=== PATIENT | male | born 1945 | race Caucasian/White ===

== ENCOUNTER 2017-02-25 17:43 | Inpatient (IN) | payer MEDICAID, OTHER ==
[~2017-02-25] VITALS: Ht 172.7 cm; Wt 90.7 kg
[~2017-02-25 17:43] MED LIST: AMIO200T42 PO; ASPI-496 PO; CALC667C PO; CARV3.1212 PO; CARV6.252 PO; CEFD300C37 PO; DOCU-30 PO; ERGO500017 PO; FERR325T20 PO; FLUT1DIS3 INH; FURO-92 PO; FURO40TA6 PO; FURO80TA3 PO; GLIM4TAB2 PO; HYDR12.53 PO; INSU100I32 SQ; IPRA3AMP18 NEB; LEVO25TA2 PO; LEVO88TA2 PO; LISI5TAB7 PO; METF850T2 PO; METO5TAB5 PO; OXYGEN INH; POTA10TA90 PO; SIME80TA16 PO; SIMV40TA3 PO; SPIR25TA PO; TIOT18CA INH; TRAM-28 PO
[2017-02-25] MEDS ORDERED: ASPIRIN 81 MG TABLET CHEW PO ONE (18:00)
[2017-02-25] MEDS ORDERED: SODIUM CHLORIDE FLUSH 10ML SYR IVF ONE (18:00)
[2017-02-25] MEDS ORDERED: ASPIRIN 81 MG TABLET CHEW ONE (18:23)
[2017-02-25 18:27] LABS: ASPARTATE AMINO TRANSFERASE 19 U/L (15-37); BLOOD UREA NITROGEN 61 mg/dL (7-18)
[2017-02-25 18:31] LABS: IS PT STATUS REG ER OR PRE ER? YES
[2017-02-25] MEDS ORDERED: LEVO125T5 PO (18:38)
[2017-02-25] MEDS ORDERED: SPIR50TA2 PO (18:42)
[2017-02-25] MEDS ORDERED: SIMV20TA3 PO (18:43)
[2017-02-25 21:00] VITALS: BP 108/69
[2017-02-25 22:23] LABS: CYTOLOGY BODY FLUID RECD INTO PATHOLOGY; CYTOLOGY BODY FLUID SOURCE ASCITES FLUID
[2017-02-25] MEDS ORDERED: LABETALOL 5MG/ML, 20ML IVPush PRN (22:30)
[2017-02-25] MEDS ORDERED: POLYETHYLENE GLYCOL 17 GM PACKET PO PRN (22:30)
[2017-02-25] MEDS ORDERED: DOCUSATE 100 MG CAPSULE PO PRN (22:30)
[2017-02-25] MEDS ORDERED: ACETAMINOPHEN 325 MG TABLET PO PRN (22:30)
[2017-02-25] MEDS ORDERED: BISACODYL 10 MG SUPP PR PRN (22:30)
[2017-02-25] MEDS: SIMVASTATIN 20 MG TABLET PO SCH (23:19)
[2017-02-25] MEDS: TRAZODONE 50MG TABLET PO PRN (23:19)
[2017-02-25] MEDS: HEPARIN 5,000 UNITS/ML, 1ML SQ SCH (23:19)
[2017-02-25 23:47] VITALS: BP 100/63
[2017-02-26] VITALS (7 sets, daily range): BP systolic 96–112; BP diastolic 52–72
[2017-02-26] MEDS: INSULIN DETEMIR 100 UNITS/ML, PEN SQ-INSULIN SCH ×3 (00:04→21:24)
[2017-02-26] MEDS: INSULIN ASPART 100 UNITS/ML, PEN SQ-INSULIN SCH ×4 (00:05→21:23)
[2017-02-26 00:10] LABS: IS PT STATUS REG ER OR PRE ER? NO
[2017-02-26] MEDS: HEPARIN 5,000 UNITS/ML, 1ML SQ SCH ×3 (05:43→21:24)
[2017-02-26 06:03] LABS: ASPARTATE AMINO TRANSFERASE 13 U/L (15-37); BLOOD UREA NITROGEN 57 mg/dL (7-18)
[2017-02-26 06:04] LABS: IS PT STATUS REG ER OR PRE ER? NO
[2017-02-26] MEDS: SPIRONOLACTONE 50 MG TABLET PO SCH ×2 (09:00→10:23)
[2017-02-26] MEDS: FUROSEMIDE 40 MG TABLET PO SCH ×3 (09:00→21:19)
[2017-02-26] MEDS ORDERED: INSULIN ASPART 100 UNITS/ML, PEN SQ-INSULIN ONE (09:00)
[2017-02-26] MEDS: CARVEDILOL 6.25 MG TABLET PO SCH ×3 (09:00→21:19)
[2017-02-26] MEDS: ASPIRIN 81 MG TABLET EC PO SCH (09:03)
[2017-02-26] MEDS: LEVOTHYROXINE 125 MCG TABLET PO SCH (09:03)
[2017-02-26] MEDS: AMIODARONE 200 MG TABLET PO SCH (09:03)
[2017-02-26] MEDS: FERROUS SULFATE 325 MG TABLET PO SCH ×3 (09:03→17:16)
[2017-02-26] MEDS: SIMVASTATIN 20 MG TABLET PO SCH (21:19)
[2017-02-26] MEDS: TRAZODONE 50MG TABLET PO PRN (23:09)
[2017-02-27 03:30] VITALS: BP 108/69
[2017-02-27 06:10] LABS: BLOOD UREA NITROGEN 54 mg/dL (7-18)
[2017-02-27] MEDS: HEPARIN 5,000 UNITS/ML, 1ML SQ SCH ×2 (06:20→14:30)
[2017-02-27] MEDS: INSULIN ASPART 100 UNITS/ML, PEN SQ-INSULIN SCH ×2 (07:00→10:57)
[2017-02-27] MEDS: FERROUS SULFATE 325 MG TABLET PO SCH (08:00)
[2017-02-27 08:18] VITALS: BP 99/64
[2017-02-27] MEDS: AMIODARONE 200 MG TABLET PO SCH (09:27)
[2017-02-27] MEDS: LEVOTHYROXINE 125 MCG TABLET PO SCH (09:27)
[2017-02-27] MEDS: CARVEDILOL 6.25 MG TABLET PO SCH (09:27)
[2017-02-27] MEDS: ASPIRIN 81 MG TABLET EC PO SCH (09:27)
[2017-02-27] MEDS: FUROSEMIDE 40 MG TABLET PO SCH (10:51)
[2017-02-27] MEDS: SPIRONOLACTONE 50 MG TABLET PO SCH (10:51)
[2017-02-27] MEDS: INSULIN DETEMIR 100 UNITS/ML, PEN SQ-INSULIN SCH (10:51)
[2017-02-27 13:53] VITALS: BP 99/64
== END 2017-02-27 18:15 | disposition home or self-care (01) | DRG 303 ==
LOC: ED 19:02 → EDIP 19:17 → 5SO 20:17
PROVIDERS: ADMIT Internal Medicine; ATTEND Internal Medicine
PROC: 0W9G3ZZ Drainage of Peritoneal Cavity, Percutaneous Approach (ICD-10-PCS; principal; 2017-02-25)
DX: I25.10 Atherosclerotic heart disease of native coronary artery without angina pectoris (principal); I13.0 Hypertensive heart and chronic kidney disease with heart failure and stage 1 through stage 4 chronic kidney disease, or unspecified chronic kidney disease; N18.4 Chronic kidney disease, stage 4 (severe); R18.8 Other ascites; I50.42 Chronic combined systolic (congestive) and diastolic (congestive) heart failure; I47.2 Ventricular tachycardia; N17.9 Acute kidney failure, unspecified; E78.5 Hyperlipidemia, unspecified; E11.22 Type 2 diabetes mellitus with diabetic chronic kidney disease; J44.9 Chronic obstructive pulmonary disease, unspecified; I48.0 Paroxysmal atrial fibrillation; E11.65 Type 2 diabetes mellitus with hyperglycemia; I25.5 Ischemic cardiomyopathy; I45.81 Long QT syndrome; E03.9 Hypothyroidism, unspecified; Z95.810 Presence of automatic (implantable) cardiac defibrillator; Z83.3 Family history of diabetes mellitus; Z82.49 Family history of ischemic heart disease and other diseases of the circulatory system; Z87.891 Personal history of nicotine dependence; Z79.82 Long term (current) use of aspirin; Z79.899 Other long term (current) drug therapy
CPT/HCPCS: 36415; 49083; 71010; 76770; 80048; 80053; 81003; 82042; 82150; 82945; 82962; 83036; 83735; 83986; 84157; 84439; 84443; 84484; 85025; 85610; 87070; 87205; 88112; 88305; 89051; 93005; 99285; J1644; J1815

== ENCOUNTER → 2017-10-28 | Outpatient (CLI) | payer OTHER ==
[~2017-10-28] MED LIST changes: +DOCU-131 PO; -DOCU-30 PO; +FERR325T18 PO; -FERR325T20 PO; +LEVO125T5 PO; +LIDOCAINE 1%, 20ML ONE; +POTA10TA6 PO; -POTA10TA90 PO; +SIMV20TA3 PO; +SPIR50TA2 PO; -TRAM-28 PO; +TRAM-47 PO
== END | disposition home or self-care (01) ==
LOC: RAD 14:39
PROVIDERS: ATTEND Internal Medicine Gastroenterology
DX: R18.8 Other ascites (principal); I50.9 Heart failure, unspecified
CPT/HCPCS: 49083; J3490

== ENCOUNTER → 2017-12-20 | Outpatient (CLI) | payer OTHER ==
[~2017-12-20] MED LIST changes: -LIDOCAINE 1%, 20ML ONE
== END | disposition home or self-care (01) ==
LOC: RAD 07:52
PROVIDERS: ATTEND Genetic Counselor, MS
DX: R18.8 Other ascites (principal)
CPT/HCPCS: 49083

== ENCOUNTER → 2018-02-08 | Outpatient (CLI) | payer OTHER ==
[~2018-02-08] MED LIST changes: +LIDOCAINE-MPF 1%, 2ML ONE
== END | disposition home or self-care (01) ==
LOC: RAD 12:03
PROVIDERS: ATTEND Genetic Counselor, MS
DX: R18.8 Other ascites (principal)
CPT/HCPCS: 49083; J3490

== ENCOUNTER → 2018-02-21 | Outpatient (CLI) | payer OTHER ==
[~2018-02-21] MED LIST changes: -LIDOCAINE-MPF 1%, 2ML ONE
== END | disposition home or self-care (01) ==
LOC: RAD 11:54
PROVIDERS: ATTEND Genetic Counselor, MS
DX: R18.8 Other ascites (principal); R14.0 Abdominal distension (gaseous); R10.9 Unspecified abdominal pain
CPT/HCPCS: 49083

== ENCOUNTER → 2018-03-17 | Outpatient (CLI) | payer OTHER ==
[~2018-03-17] MED LIST changes: +LIDOCAINE-MPF 2% ,5ML ONE
== END | disposition home or self-care (01) ==
LOC: RAD 13:24
PROVIDERS: ATTEND Genetic Counselor, MS
DX: R18.8 Other ascites (principal); R14.0 Abdominal distension (gaseous)
CPT/HCPCS: 49083; J3490

== ENCOUNTER → 2018-04-07 | Outpatient (CLI) | payer OTHER | END | disposition home or self-care (01) | LOC: RAD 13:17 | PROVIDERS: ATTEND Genetic Counselor, MS | DX: R18.8 Other ascites (principal); R14.0 Abdominal distension (gaseous) | CPT/HCPCS: 49083; J3490 ==

== ENCOUNTER → 2018-12-22 | Outpatient (CLI) | payer OTHER ==
[~2018-12-22] MED LIST changes: +HYDR12.517 PO; -HYDR12.53 PO; +LIDOCAINE-MPF 1%, 5ML ONE; -LIDOCAINE-MPF 2% ,5ML ONE; +METF850T10 PO; -METF850T2 PO; -SPIR50TA2 PO; +SPIR50TA4 PO
== END | disposition home or self-care (01) ==
LOC: RAD 11:41
PROVIDERS: ATTEND Internal Medicine Gastroenterology
DX: K70.9 Alcoholic liver disease, unspecified (principal)
CPT/HCPCS: 49083

== ENCOUNTER → 2019-01-02 | Outpatient (CLI) | payer OTHER | END | disposition home or self-care (01) | LOC: RAD 14:11 | PROVIDERS: ATTEND Genetic Counselor, MS | DX: K70.9 Alcoholic liver disease, unspecified (principal) | CPT/HCPCS: 49083 ==

== ENCOUNTER → 2019-01-09 | Outpatient (CLI) | payer OTHER | END | disposition home or self-care (01) | LOC: RAD 13:36 | PROVIDERS: ATTEND Genetic Counselor, MS | DX: R18.8 Other ascites (principal) | CPT/HCPCS: 49083 ==

== ENCOUNTER → 2019-01-12 | Outpatient (CLI) | payer OTHER | END | disposition home or self-care (01) | LOC: RAD 12:16 | PROVIDERS: ATTEND Genetic Counselor, MS | DX: K74.60 Unspecified cirrhosis of liver (principal) | CPT/HCPCS: 49083 ==

== ENCOUNTER 2019-01-16 08:24 | Emergency (ER) | payer OTHER ==
[~2019-01-16] VITALS: Ht 175.3 cm; Wt 88.6 kg
[~2019-01-16 08:24] MED LIST changes: -LIDOCAINE-MPF 1%, 5ML ONE
[2019-01-16] MEDS ORDERED: SODIUM CHLORIDE FLUSH 10ML SYR IVF ONE (09:00)
--- NOTE | 2019-01-16 09:27 | NUR ---
Pt transported on gurney [facility] All safety measures in place.
--- NOTE | 2019-01-16 09:39 | NUR ---
Pt gave verbal consent at 0845 for ED staff to discuss his medical history and care with his daughter who is at bedside. Pt's daughter confirmed pt's home meds, but states, "I don't know his doses, and he won't either."
[2019-01-16 09:47] LABS: BASOPHILS # (AUTO) 0.02 x10^3/uL (0-0.1); BASOPHILS % (AUTO) 0 % (0-1); EOSINOPHILS # (AUTO) 0.15 x10^3/uL (0-0.4); EOSINOPHILS % (AUTO) 2 % (1-7); LYMPHOCYTES # (AUTO) 0.98 x10^3/uL (1-3.4); LYMPHOCYTES % (AUTO) 12 % (22-44); MD NO; MEAN CORPUSCULAR HEMOGLOBIN 29.1 pg (27.5-34.5); MEAN CORPUSCULAR HGB CONC 32.8 g/dL (33.2-36.2); MEAN CORPUSCULAR VOLUME 88.7 fL (81-97); MEAN PLATELET VOLUME 9.1 fL (7.4-10.4); MONOCYTES # (AUTO) 0.77 x10^3/uL (0.2-0.8); MONOCYTES % (AUTO) 9 % (2-9); NEUTROPHILS # (AUTO) 6.65 x10^3/uL (1.8-6.8); NEUTROPHILS % (AUTO) 78 % (42-75); PLATELET COUNT 187 x10^3/uL (130-400); RED CELL DISTRIBUTION WIDTH 14.1 % (9.4-14.8)
[2019-01-16 10:12] LABS: ALANINE AMINOTRANSFERASE 19 U/L (12-78); CALCIUM 8.6 mg/dL (8.5-10.1); CREATININE 2.05 mg/dL (0.7-1.3)
--- NOTE | 2019-01-16 10:12 | NUR ---
Pt back to room from x-ray. Pt requiring oxygen while at rest as SPO2% is at 76% on room air when pt is at rest. Pt is on 3L oxygen via nasal cannula to remain abve 90% while resting supine. Pt aware of need or urine sample. Urinal at bedside. Pt has both bedrails up for safety measures. Call light is within reach. Pt's daughter is at bedside. No other needs requested at this time.
--- NOTE | 2019-01-16 10:22 | NUR ---
Dejon with IR at extension [phone] called regarding pt's schedule paracenthesis today scheduled for 1000 today. Dejon wanted to know if ED doctor is "planning on doing that."
[2019-01-16 10:41] LABS: ALBUMIN 2.5 g/dL (3.4-5.0); ALKALINE PHOSPHATASE 238 U/L (45-117); ANION GAP 7 mmol/L (5-15); BILIRUBIN,TOTAL 0.9 mg/dL (0.2-1.0); CHLORIDE 101 mmol/L (98-107); TOTAL PROTEIN 6.2 g/dL (6.4-8.2)
--- NOTE | 2019-01-16 10:43 | NUR ---
ED MD informed of paracenthesis. ED MD states, "Luzmaria is going to do it here." IR called and notified.
--- NOTE | 2019-01-16 10:47 | NUR ---
Pt requesting water. Provided pt water per request and with ED MD verbal consent. Pt aware of need for urine. Pt's daughter Jennifer at bedside left to "take my daughter to school." Jennifer can be contacted at [phone] for shrimp picker when pt is to be discharged.
[2019-01-16] MEDS ORDERED: LIDOCAINE-MPF 1%, 5ML ONE (10:51)
--- NOTE | 2019-01-16 11:10 | NUR ---
IR at ED bedside for paracentesis. IR provided consent paperwork. IR to obtain consent from pt.
--- NOTE | 2019-01-16 11:17 | NUR ---
Pt provided urine sample. Urine sample sent to lab. [facility].
[2019-01-16 11:25] LABS: MICROSCOPIC NOT IND
[2019-01-16 11:28] LABS: CULTURE INDICATED? NO
--- NOTE | 2019-01-16 12:18 | NUR ---
Called pt's daughter Jennifer at [phone] for pt d/c transportation. Unable to leave voicemail due to voicemail box being "full". Pt aware.
--- NOTE | 2019-01-16 12:27 | NUR ---
Pt's daughter Jennifer called. Jennifer stated, "I will be there in 30 minutes." Pt aware.
--- NOTE | 2019-01-16 12:38 | NUR ---
Patient given discharge instructions and they have confirmed that they understand the instructions. Patient pushed in wheelchair to ED. Pt left with all personal belongings, d/c paperwork, prescription, and rest note. PIV in right forearm 20g removed with tip intact.
[2019-01-16 12:40] VITALS: BP 132/61
== END 2019-01-16 12:42 | disposition home or self-care (01) ==
LOC: ED 10:18
DX: S32.020A Wedge compression fracture of second lumbar vertebra, initial encounter for closed fracture (principal); S22.080A Wedge compression fracture of T11-T12 vertebra, initial encounter for closed fracture; I13.0 Hypertensive heart and chronic kidney disease with heart failure and stage 1 through stage 4 chronic kidney disease, or unspecified chronic kidney disease; E11.22 Type 2 diabetes mellitus with diabetic chronic kidney disease; N18.9 Chronic kidney disease, unspecified; I50.9 Heart failure, unspecified; I48.91 Unspecified atrial fibrillation; J44.9 Chronic obstructive pulmonary disease, unspecified; I25.2 Old myocardial infarction; K70.31 Alcoholic cirrhosis of liver with ascites; Z87.891 Personal history of nicotine dependence; Z95.0 Presence of cardiac pacemaker; W01.0XXA Fall on same level from slipping, tripping and stumbling without subsequent striking against object, initial encounter; Y93.89 Activity, other specified; Y92.89 Other specified places as the place of occurrence of the external cause; Y99.8 Other external cause status
CPT/HCPCS: 36415; 49083; 72110; 72220; 80053; 81003; 83735; 84100; 85025; 99285

== ENCOUNTER → 2019-01-26 | Outpatient (CLI) | payer OTHER ==
[~2019-01-26] MED LIST changes: +LIDOCAINE-MPF 1%, 5ML ONE
== END | disposition home or self-care (01) ==
LOC: RAD 14:17
PROVIDERS: ATTEND Genetic Counselor, MS
DX: R18.8 Other ascites (principal)
CPT/HCPCS: 49083

== ENCOUNTER → 2019-03-16 | Outpatient (CLI) | payer OTHER | END | disposition home or self-care (01) | LOC: RAD 13:15 | PROVIDERS: ATTEND Genetic Counselor, MS | DX: R18.8 Other ascites (principal) | CPT/HCPCS: 49083 ==

== ENCOUNTER → 2019-03-23 | Outpatient (CLI) | payer OTHER | END | disposition home or self-care (01) | LOC: RAD 14:38 | PROVIDERS: ATTEND Genetic Counselor, MS | DX: R18.8 Other ascites (principal) | CPT/HCPCS: 49083 ==

== ENCOUNTER 2019-03-30 11:37 | Outpatient (CLI) | payer OTHER ==
[~2019-03-30 11:37] MED LIST changes: -LIDOCAINE-MPF 1%, 5ML ONE
[2019-03-30] MEDS ORDERED: LIDOCAINE-MPF 1%, 5ML ONE ×2 (11:38)
== END 2019-03-30 23:59 | disposition home or self-care (01) ==
LOC: RAD 11:37
PROVIDERS: ATTEND Genetic Counselor, MS
DX: R18.8 Other ascites (principal)
CPT/HCPCS: 49083

== ENCOUNTER 2019-04-06 11:31 | Outpatient (CLI) | payer OTHER | END 2019-04-06 23:59 | disposition home or self-care (01) | LOC: RAD 11:31 | PROVIDERS: ATTEND Genetic Counselor, MS | DX: R18.8 Other ascites (principal) | CPT/HCPCS: 49083; J3490 ==

== ENCOUNTER 2019-04-12 09:06 | Outpatient (CLI) | payer OTHER | END 2019-04-12 23:59 | disposition home or self-care (01) | LOC: RAD 09:06 | PROVIDERS: ATTEND Genetic Counselor, MS | DX: R18.8 Other ascites (principal) | CPT/HCPCS: 49083 ==

== ENCOUNTER 2019-04-19 11:40 | Outpatient (CLI) | payer OTHER | END 2019-04-19 23:59 | disposition home or self-care (01) | LOC: RAD 11:40 | PROVIDERS: ATTEND Genetic Counselor, MS | DX: R18.8 Other ascites (principal) | CPT/HCPCS: 49083 ==

== ENCOUNTER 2019-04-26 11:10 | Outpatient (CLI) | payer OTHER | END 2019-04-26 23:59 | disposition home or self-care (01) | LOC: RAD 11:10 | PROVIDERS: ATTEND Genetic Counselor, MS | DX: R18.8 Other ascites (principal); K74.60 Unspecified cirrhosis of liver | CPT/HCPCS: 49083; J3490 ==

== ENCOUNTER 2019-07-12 13:38 | Outpatient (CLI) | payer MEDICARE, MEDICAID ==
[2019-07-12] MEDS ORDERED: LIDOCAINE 1%, 10ML ONE (13:49)
== END 2019-07-12 23:59 | disposition home or self-care (01) ==
LOC: RAD 13:38
PROVIDERS: ATTEND Genetic Counselor, MS
DX: R18.8 Other ascites (principal)
CPT/HCPCS: 49083

== ENCOUNTER 2019-08-02 13:32 | Outpatient (CLI) | payer MEDICARE, MEDICAID ==
[~2019-08-02 13:32] MED LIST changes: -GLIM4TAB2 PO; +GLIM4TAB4 PO; +LIDOCAINE 1%, 10ML ONE
== END 2019-08-02 23:59 | disposition home or self-care (01) ==
LOC: RAD 13:32
PROVIDERS: ATTEND Genetic Counselor, MS
DX: R18.8 Other ascites (principal)
CPT/HCPCS: 49083

== ENCOUNTER → 2019-08-09 | Outpatient (CLI) | payer MEDICARE, MEDICAID | END | disposition home or self-care (01) | LOC: RAD 13:42 | PROVIDERS: ATTEND Genetic Counselor, MS | DX: R18.8 Other ascites (principal) | CPT/HCPCS: 49083 ==

== ENCOUNTER 2019-08-14 12:53 | Outpatient (CLI) | payer MEDICARE, MEDICAID ==
[~2019-08-14 12:53] MED LIST changes: -LIDOCAINE 1%, 10ML ONE
[2019-08-14] MEDS ORDERED: LIDOCAINE 1%, 10ML ONE (13:17)
== END 2019-08-14 23:59 | disposition home or self-care (01) ==
LOC: RAD 12:53
PROVIDERS: ATTEND Genetic Counselor, MS
DX: R18.8 Other ascites (principal); R10.9 Unspecified abdominal pain; Z87.891 Personal history of nicotine dependence
CPT/HCPCS: 49083

== ENCOUNTER → 2019-08-23 | Outpatient (CLI) | payer MEDICARE, MEDICAID ==
[~2019-08-23] MED LIST changes: +LIDOCAINE 1%, 10ML ONE
== END | disposition home or self-care (01) ==
LOC: RAD 13:42
PROVIDERS: ATTEND Genetic Counselor, MS
DX: R18.8 Other ascites (principal)
CPT/HCPCS: 49083

== ENCOUNTER 2019-09-06 14:15 | Outpatient (CLI) | payer MEDICARE, MEDICAID ==
[~2019-09-06 14:15] MED LIST changes: -LIDOCAINE 1%, 10ML ONE
[2019-09-06] MEDS ORDERED: LIDOCAINE 1%, 10ML ONE (14:19)
== END 2019-09-06 23:59 | disposition home or self-care (01) ==
LOC: RAD 14:15
PROVIDERS: ATTEND Genetic Counselor, MS
DX: R18.8 Other ascites (principal)
CPT/HCPCS: 49083

== ENCOUNTER 2019-09-11 10:36 | Outpatient (CLI) | payer MEDICARE, MEDICAID ==
[2019-09-11] MEDS ORDERED: LIDOCAINE-MPF 1%, 5ML ONE (11:03)
== END 2019-09-11 23:59 | disposition home or self-care (01) ==
LOC: RAD 10:36
PROVIDERS: ATTEND Genetic Counselor, MS
DX: R18.8 Other ascites (principal)
CPT/HCPCS: 49083; 88112; 88305; 88341; 88342

== ENCOUNTER → 2019-09-20 | Outpatient (CLI) | payer MEDICARE, MEDICAID ==
[~2019-09-20] MED LIST changes: +LIDOCAINE 1%, 10ML ONE
== END | disposition home or self-care (01) ==
LOC: RAD 13:40
PROVIDERS: ATTEND Genetic Counselor, MS
DX: R18.8 Other ascites (principal)
CPT/HCPCS: 49083

== ENCOUNTER 2019-09-27 12:54 | Outpatient (CLI) | payer MEDICARE, MEDICAID ==
[~2019-09-27 12:54] MED LIST changes: -LIDOCAINE 1%, 10ML ONE
[2019-09-27] MEDS ORDERED: LIDOCAINE 1%, 10ML ONE (13:10)
[2019-09-27] MEDS ORDERED: ALBUMIN HUMAN 25%, 25GM/100ML IV ONE (14:00)
== END 2019-09-27 23:59 | disposition home or self-care (01) ==
LOC: RAD 12:54
PROVIDERS: ATTEND Genetic Counselor, MS
DX: R18.8 Other ascites (principal)
CPT/HCPCS: 49083

== ENCOUNTER 2019-10-04 13:28 | Outpatient (CLI) | payer MEDICARE, MEDICAID ==
[2019-10-04] MEDS ORDERED: ALBUMIN HUMAN 25% 200 ML IV ONE (14:30)
[2019-10-04] MEDS ORDERED: LIDOCAINE 1%, 10ML ONE (14:35)
== END 2019-10-04 23:59 | disposition home or self-care (01) ==
LOC: RAD 13:28
PROVIDERS: ATTEND Genetic Counselor, MS
DX: R18.8 Other ascites (principal)
CPT/HCPCS: 49083

== ENCOUNTER 2019-10-11 13:09 | Outpatient (CLI) | payer MEDICARE, MEDICAID ==
[2019-10-11] MEDS ORDERED: LIDOCAINE 1%, 10ML ONE (14:16)
[2019-10-11] MEDS ORDERED: ALBUMIN HUMAN 25%, 25GM/100ML ONE (15:44)
== END 2019-10-11 23:59 | disposition home or self-care (01) ==
LOC: RAD 13:09
PROVIDERS: ATTEND Genetic Counselor, MS
DX: R18.8 Other ascites (principal)
CPT/HCPCS: 49083; P9047

== ENCOUNTER → 2019-10-18 | Outpatient (CLI) | payer MEDICARE, MEDICAID ==
[~2019-10-18] MED LIST changes: +ALBUMIN HUMAN 25%, 25GM/100ML ONE; +LIDOCAINE 1%, 10ML ONE
== END | disposition home or self-care (01) ==
LOC: RAD 13:54
PROVIDERS: ATTEND Genetic Counselor, MS
DX: R18.8 Other ascites (principal)
CPT/HCPCS: 49083; P9047

== ENCOUNTER → 2019-10-23 | Outpatient (CLI) | payer MEDICARE, MEDICAID ==
[~2019-10-23] MED LIST changes: -GLIM4TAB4 PO; +GLIM4TAB8 PO; +SIMV20TA19 PO; -SIMV20TA3 PO; +SIMV40TA20 PO; -SIMV40TA3 PO
== END | disposition home or self-care (01) ==
LOC: RAD 13:25
PROVIDERS: ATTEND Genetic Counselor, MS
DX: R18.8 Other ascites (principal)
CPT/HCPCS: 49083; P9047

== ENCOUNTER → 2019-10-25 | Outpatient (CLI) | payer MEDICARE, MEDICAID | END | disposition home or self-care (01) | LOC: RAD 13:39 | PROVIDERS: ATTEND Genetic Counselor, MS | DX: R18.8 Other ascites (principal) | CPT/HCPCS: 49083; P9047 ==

== ENCOUNTER → 2019-10-30 | Outpatient (CLI) | payer MEDICARE, MEDICAID | END | disposition home or self-care (01) | LOC: RAD 08:51 | PROVIDERS: ATTEND Genetic Counselor, MS | DX: R18.8 Other ascites (principal) | CPT/HCPCS: 49083; P9047 ==

== ENCOUNTER → 2019-11-02 | Outpatient (CLI) | payer MEDICARE, MEDICAID ==
[~2019-11-02] MED LIST changes: +ALBUMIN HUMAN 25% 12.5 GM/50 ML ONE; -ALBUMIN HUMAN 25%, 25GM/100ML ONE
== END | disposition home or self-care (01) ==
LOC: RAD 09:16
PROVIDERS: ATTEND Genetic Counselor, MS
DX: R18.8 Other ascites (principal)
CPT/HCPCS: 49083; P9047

== ENCOUNTER 2019-11-06 10:09 | Outpatient (CLI) | payer MEDICARE, MEDICAID ==
[~2019-11-06 10:09] MED LIST changes: -ALBUMIN HUMAN 25% 12.5 GM/50 ML ONE
[2019-11-06] MEDS ORDERED: ALBUMIN HUMAN 25%, 25GM/100ML ONE (11:16)
== END 2019-11-06 23:59 | disposition home or self-care (01) ==
LOC: RAD 10:09
PROVIDERS: ATTEND Genetic Counselor, MS
DX: R18.8 Other ascites (principal)
CPT/HCPCS: 49083; P9047

== ENCOUNTER → 2019-11-09 | Outpatient (CLI) | payer MEDICARE, MEDICAID ==
[~2019-11-09] MED LIST changes: +ALBUMIN HUMAN 25%, 25GM/100ML ONE
== END | disposition home or self-care (01) ==
LOC: RAD 09:37
PROVIDERS: ATTEND Genetic Counselor, MS
DX: R18.8 Other ascites (principal)
CPT/HCPCS: 49083; P9047

== ENCOUNTER → 2019-11-13 | Outpatient (CLI) | payer MEDICARE, MEDICAID | END | disposition home or self-care (01) | LOC: RAD 09:44 | PROVIDERS: ATTEND Genetic Counselor, MS | DX: R18.8 Other ascites (principal) | CPT/HCPCS: 49083; P9047 ==

== ENCOUNTER 2019-11-16 08:39 | Outpatient (CLI) | payer MEDICARE, MEDICAID ==
[~2019-11-16 08:39] MED LIST changes: -ALBUMIN HUMAN 25%, 25GM/100ML ONE; -LIDOCAINE 1%, 10ML ONE
[2019-11-16] MEDS ORDERED: LIDOCAINE 1%, 10ML ONE (09:23)
[2019-11-16] MEDS ORDERED: ALBUMIN HUMAN 5%, 25G/500ML ONE ×2 (10:00→17:47)
== END 2019-11-16 23:59 | disposition home or self-care (01) ==
LOC: RAD 08:39
PROVIDERS: ATTEND Genetic Counselor, MS
DX: R18.8 Other ascites (principal)
CPT/HCPCS: 49083; P9045

== ENCOUNTER → 2019-11-20 | Outpatient (CLI) | payer MEDICARE, MEDICAID ==
[~2019-11-20] MED LIST changes: +ALBUMIN HUMAN 25%, 25GM/100ML ONE; +LIDOCAINE 1%, 10ML ONE
== END | disposition home or self-care (01) ==
LOC: RAD 09:53
PROVIDERS: ATTEND Genetic Counselor, MS
DX: R18.8 Other ascites (principal)
CPT/HCPCS: 49083; P9047

== ENCOUNTER 2019-11-23 10:13 | Outpatient (CLI) | payer MEDICARE, MEDICAID ==
[~2019-11-23 10:13] MED LIST changes: -ALBUMIN HUMAN 25%, 25GM/100ML ONE; -LIDOCAINE 1%, 10ML ONE
[2019-11-23] MEDS ORDERED: LIDOCAINE 1%, 10ML ONE (10:31)
[2019-11-23] MEDS ORDERED: ALBUMIN HUMAN 25%, 25GM/100ML ONE (11:00)
== END 2019-11-23 23:59 | disposition home or self-care (01) ==
LOC: RAD 10:13
PROVIDERS: ATTEND Genetic Counselor, MS
DX: R18.8 Other ascites (principal)
CPT/HCPCS: 49083; P9047

== ENCOUNTER 2019-11-27 10:07 | Outpatient (CLI) | payer MEDICARE, MEDICAID ==
[~2019-11-27 10:07] MED LIST changes: +LIDOCAINE 1%, 10ML ONE
[2019-11-27] MEDS ORDERED: ALBUMIN HUMAN 25%, 25GM/100ML ONE (14:02)
== END 2019-11-27 23:59 | disposition home or self-care (01) ==
LOC: RAD 10:07
PROVIDERS: ATTEND Genetic Counselor, MS
DX: R18.8 Other ascites (principal); F10.10 Alcohol abuse, uncomplicated; Z79.82 Long term (current) use of aspirin; Z79.899 Other long term (current) drug therapy; Z79.4 Long term (current) use of insulin; Z87.891 Personal history of nicotine dependence; Z82.49 Family history of ischemic heart disease and other diseases of the circulatory system; Z83.3 Family history of diabetes mellitus
CPT/HCPCS: 49083; P9047

== ENCOUNTER 2019-11-30 10:09 | Outpatient (CLI) | payer MEDICARE, MEDICAID ==
[~2019-11-30 10:09] MED LIST changes: -LIDOCAINE 1%, 10ML ONE
[2019-11-30] MEDS ORDERED: LIDOCAINE 1%, 10ML ONE (10:39)
[2019-11-30] MEDS ORDERED: ALBUMIN HUMAN 25%, 25GM/100ML ONE (11:00)
== END 2019-11-30 23:59 | disposition home or self-care (01) ==
LOC: RAD 10:09
PROVIDERS: ATTEND Genetic Counselor, MS
DX: R18.8 Other ascites (principal)
CPT/HCPCS: 49083; P9047

== ENCOUNTER 2019-12-04 09:39 | Outpatient (CLI) | payer MEDICARE, MEDICAID ==
[2019-12-04] MEDS ORDERED: LIDOCAINE 1%, 10ML ONE (09:55)
[2019-12-04] MEDS ORDERED: ALBUMIN HUMAN 25%, 25GM/100ML ONE (10:00)
== END 2019-12-04 23:59 | disposition home or self-care (01) ==
LOC: RAD 09:39
PROVIDERS: ATTEND Genetic Counselor, MS
DX: R18.8 Other ascites (principal); E11.9 Type 2 diabetes mellitus without complications; Z79.82 Long term (current) use of aspirin; Z79.899 Other long term (current) drug therapy; Z79.4 Long term (current) use of insulin; Z72.89 Other problems related to lifestyle; Z87.891 Personal history of nicotine dependence; Z82.49 Family history of ischemic heart disease and other diseases of the circulatory system; Z83.3 Family history of diabetes mellitus
CPT/HCPCS: 49083; P9047

== ENCOUNTER → 2019-12-07 | Outpatient (CLI) | payer MEDICARE, MEDICAID ==
[~2019-12-07] MED LIST changes: +ALBUMIN HUMAN 25%, 25GM/100ML ONE; +LIDOCAINE 1%, 10ML ONE
== END | disposition home or self-care (01) ==
LOC: RAD 09:45
PROVIDERS: ATTEND Genetic Counselor, MS
DX: R18.8 Other ascites (principal)
CPT/HCPCS: 49083; P9047

== ENCOUNTER → 2019-12-11 | Outpatient (CLI) | payer MEDICARE, MEDICAID | END | disposition home or self-care (01) | LOC: RAD 09:58 | PROVIDERS: ATTEND Genetic Counselor, MS | DX: R18.8 Other ascites (principal) | CPT/HCPCS: 49083; P9047 ==

== ENCOUNTER → 2019-12-14 | Outpatient (CLI) | payer MEDICARE, MEDICAID | END | disposition home or self-care (01) | LOC: RAD 09:43 | PROVIDERS: ATTEND Genetic Counselor, MS | DX: R18.8 Other ascites (principal) | CPT/HCPCS: 49083; P9047 ==

== ENCOUNTER → 2019-12-18 | Outpatient (CLI) | payer MEDICARE, MEDICAID | END | disposition home or self-care (01) | LOC: RAD 09:37 | PROVIDERS: ATTEND Genetic Counselor, MS | DX: R18.8 Other ascites (principal) | CPT/HCPCS: 49083; P9047 ==

== ENCOUNTER → 2019-12-21 | Outpatient (CLI) | payer MEDICARE, MEDICAID ==
[~2019-12-21] MED LIST changes: +ALBUMIN HUMAN 25% 12.5 GM/50 ML ONE; -ALBUMIN HUMAN 25%, 25GM/100ML ONE
== END | disposition home or self-care (01) ==
LOC: RAD 09:51
PROVIDERS: ATTEND Genetic Counselor, MS
DX: R18.8 Other ascites (principal)
CPT/HCPCS: 49083; P9047

== ENCOUNTER 2019-12-25 09:40 | Outpatient (CLI) | payer MEDICARE, MEDICAID ==
[~2019-12-25 09:40] MED LIST changes: -ALBUMIN HUMAN 25% 12.5 GM/50 ML ONE; -LIDOCAINE 1%, 10ML ONE
[2019-12-25] MEDS ORDERED: LIDOCAINE 1%, 10ML ONE (09:50)
[2019-12-25] MEDS ORDERED: ALBUMIN HUMAN 5%, 25G/500ML ONE (11:47)
== END 2019-12-25 23:59 | disposition home or self-care (01) ==
LOC: RAD 09:40
PROVIDERS: ATTEND Genetic Counselor, MS
DX: R18.8 Other ascites (principal)
CPT/HCPCS: 49083; P9045

== ENCOUNTER 2019-12-28 09:47 | Outpatient (CLI) | payer MEDICARE, MEDICAID ==
[~2019-12-28 09:47] MED LIST changes: +LIDOCAINE 1%, 10ML ONE
[2019-12-28] MEDS ORDERED: ALBUMIN HUMAN 25%, 25GM/100ML ONE (10:00)
== END 2019-12-28 23:59 | disposition home or self-care (01) ==
LOC: RAD 09:47
PROVIDERS: ATTEND Genetic Counselor, MS
DX: R18.8 Other ascites (principal)
CPT/HCPCS: 49083; P9047

== ENCOUNTER 2020-01-01 09:32 | Outpatient (CLI) | payer MEDICARE, MEDICAID ==
[~2020-01-01 09:32] MED LIST changes: -LIDOCAINE 1%, 10ML ONE
[2020-01-01] MEDS ORDERED: LIDOCAINE 1%, 10ML ONE (09:43)
[2020-01-01] MEDS ORDERED: ALBUMIN HUMAN 25%, 25GM/100ML ONE (11:26)
== END 2020-01-01 23:59 | disposition home or self-care (01) ==
LOC: RAD 09:32
PROVIDERS: ATTEND Genetic Counselor, MS
DX: R18.8 Other ascites (principal); I50.22 Chronic systolic (congestive) heart failure; R06.02 Shortness of breath; R05 Cough; Z95.810 Presence of automatic (implantable) cardiac defibrillator
CPT/HCPCS: 49083; 71046; P9047

== ENCOUNTER 2020-01-02 20:33 | Inpatient (IN) | payer MEDICAID, MEDICARE ==
[~2020-01-02] VITALS: Ht 172.7 cm; Wt 84.6 kg
[2020-01-02] MEDS ORDERED: SODIUM CHLORIDE FLUSH 10ML SYR IVF ONE (21:00)
[2020-01-02] MEDS ORDERED: SODIUM CHLORIDE 0.9% 1,000ML IVBOLUS ONE (21:00)
--- NOTE | 2020-01-02 21:04 | NUR ---
PT TO ED, SENT TO ED BY PCP REPROTS THAT LABS ARE INDICATIVE OF ACUTE KIDNEY FAILURE. PT HAS CKD.IV IN [place], LABS DRAWN, IVF STARTED, CXR PERFORMED, EKG PERFORMED. PT RESTING ON GURNEY, HAS LOOSE COUGH REPORTS THIS IS CHRONIC. PT ON 4.5L NC BASELINE AT HOME. PT DENIES ANY C/O AT THIS TIME. CALL LIGHT WITHIN REACH, ALL MONITORING IN PLACE, FAMIYL AT FOR SUPPORT, ALL SAFETY MEASURES IN PLACE.
[2020-01-02 21:12] LABS: BASOPHILS # (AUTO) 0.02 x10^3/uL (0-0.1); BASOPHILS % (AUTO) 0 % (0-1); EOSINOPHILS # (AUTO) 0.16 x10^3/uL (0-0.4); EOSINOPHILS % (AUTO) 2 % (1-7); LYMPHOCYTES # (AUTO) 0.83 x10^3/uL (1-3.4); LYMPHOCYTES % (AUTO) 8 % (22-44); MD NO; MEAN CORPUSCULAR HEMOGLOBIN 29.6 pg (27.5-34.5); MEAN CORPUSCULAR HGB CONC 33.1 g/dL (33.2-36.2); MEAN CORPUSCULAR VOLUME 89.2 fL (81-97); MEAN PLATELET VOLUME 8.3 fL (7.4-10.4); MONOCYTES # (AUTO) 1.05 x10^3/uL (0.2-0.8); MONOCYTES % (AUTO) 10 % (2-9); NEUTROPHILS # (AUTO) 8.01 x10^3/uL (1.8-6.8); NEUTROPHILS % (AUTO) 80 % (42-75); PLATELET COUNT 242 x10^3/uL (130-400); RED BLOOD COUNT 4.03 x10^6/uL (4.38-5.82); RED CELL DISTRIBUTION WIDTH 14.6 % (9.4-14.8)
[2020-01-02 21:19] LABS: INTERNATIONAL NORMALIZED RATIO 1.11 (0.93-1.1); PROTHROMBIN TIME 11.8 Seconds (9.6-11.5)
[2020-01-02 21:22] LABS: ALANINE AMINOTRANSFERASE 18 U/L (12-78); ALBUMIN 2.8 g/dL (3.4-5.0); ANION GAP 8 mmol/L (5-15); CALCIUM 8.4 mg/dL (8.5-10.1); CHLORIDE 100 mmol/L (98-107); CREATININE 3.73 mg/dL (0.7-1.3)
[2020-01-02 21:26] LABS: ALKALINE PHOSPHATASE 210 U/L (45-117); BILIRUBIN,TOTAL 0.6 mg/dL (0.2-1.0); TOTAL PROTEIN 6.3 g/dL (6.4-8.2); TROPONIN I 0.172 ng/mL (0.000-0.045)
[2020-01-02] MEDS ORDERED: DOCUSATE 100 MG CAPSULE PO PRN (22:30)
[2020-01-02] MEDS ORDERED: POLYETHYLENE GLYCOL 17 GM PACKET PO PRN (22:30)
[2020-01-02] MEDS ORDERED: BISACODYL 10 MG SUPP PR PRN (22:30)
[2020-01-02 23:03] LABS: C-REACTIVE PROTEIN, QUANT 8.7 mg/dL (0.02-0.49)
[2020-01-02 23:05] VITALS: BP 98/59
[2020-01-02] MEDS: HEPARIN 5,000 UNITS/ML, 1ML SQ SCH (23:26)
[2020-01-02] MEDS: CEFTRIAXONE PMX 1GM/50ML 50 ML IV SCH (23:26)
[2020-01-02] MEDS: TEMAZEPAM 15 MG CAPSULE PO PRN (23:26)
[2020-01-03] MEDS: AZITHROMYCIN 500 MG in SODIUM CHLORIDE 0.9% 250 ML IV SCH ×2 (01:03→23:28)
[2020-01-03 01:39] VITALS: BP 103/65
[2020-01-03 04:57] LABS: BASOPHILS # (AUTO) 0.01 x10^3/uL (0-0.1); BASOPHILS % (AUTO) 0 % (0-1); EOSINOPHILS # (AUTO) 0.16 x10^3/uL (0-0.4); EOSINOPHILS % (AUTO) 2 % (1-7); LYMPHOCYTES # (AUTO) 1.01 x10^3/uL (1-3.4); LYMPHOCYTES % (AUTO) 9 % (22-44); MD NO; MEAN CORPUSCULAR HEMOGLOBIN 29.4 pg (27.5-34.5); MEAN CORPUSCULAR HGB CONC 32.7 g/dL (33.2-36.2); MEAN CORPUSCULAR VOLUME 89.9 fL (81-97); MEAN PLATELET VOLUME 8.4 fL (7.4-10.4); MONOCYTES # (AUTO) 1.31 x10^3/uL (0.2-0.8); MONOCYTES % (AUTO) 12 % (2-9); NEUTROPHILS # (AUTO) 8.31 x10^3/uL (1.8-6.8); NEUTROPHILS % (AUTO) 77 % (42-75); PLATELET COUNT 243 x10^3/uL (130-400); RED BLOOD COUNT 3.79 x10^6/uL (4.38-5.82); RED CELL DISTRIBUTION WIDTH 15.3 % (9.4-14.8)
[2020-01-03 05:05] LABS: ALBUMIN 2.5 g/dL (3.4-5.0); ANION GAP 10 mmol/L (5-15); CALCIUM 8.1 mg/dL (8.5-10.1); CHLORIDE 102 mmol/L (98-107)
[2020-01-03 05:09] LABS: ALANINE AMINOTRANSFERASE 16 U/L (12-78); ALKALINE PHOSPHATASE 184 U/L (45-117); BILIRUBIN,TOTAL 0.6 mg/dL (0.2-1.0); CHOL/HDL RATIO 3.1; CHOLESTEROL, TOTAL 69 mg/dL (140-239); CREATININE 3.88 mg/dL (0.7-1.3); HDL CHOL % 32 % (26-37); HDL CHOLESTEROL (DIRECT) 22 mg/dL (40-60); LDL CHOLESTEROL,CALCULATED 28 mg/dL (54-169); LDL/HDL RATIO 1.3 (0.5-3.0); TOTAL PROTEIN 5.6 g/dL (6.4-8.2); TRIGLYCERIDES 96 mg/dL (50-200); TROPONIN I 0.148 ng/mL (0.000-0.045); VLDL CHOLESTEROL 19 mg/dL (0-25)
[2020-01-03 07:26] VITALS: BP 87/53
[2020-01-03] MEDS: HEPARIN 5,000 UNITS/ML, 1ML SQ SCH ×3 (07:29→22:44)
[2020-01-03] MEDS: CARVEDILOL 6.25 MG TABLET PO SCH ×2 (07:46→21:51)
[2020-01-03] MEDS: AMIODARONE 200 MG TABLET PO SCH (08:15)
[2020-01-03] MEDS: LEVOTHYROXINE 125 MCG TABLET PO SCH (08:16)
[2020-01-03 08:55] LABS: MICROSCOPIC INDICATED
[2020-01-03 09:00] LABS: CULTURE INDICATED? NO
[2020-01-03] MEDS ORDERED: ASPIRIN 81 MG TABLET EC PO SCH (09:00)
[2020-01-03] MEDS: CALCIUM ACETATE 667 MG CAPSULE PO SCH ×2 (12:54→16:42)
[2020-01-03] MEDS ORDERED: MIDAZOLAM 1 MG/ML, 5ML ONE (13:04)
[2020-01-03] MEDS ORDERED: FENTANYL PF 100 MCG/2ML ONE (13:04)
[2020-01-03] MEDS ORDERED: NALOXONE 1 MG/ML, 2ML ONE (13:04)
[2020-01-03] MEDS ORDERED: LIDOCAINE 1%, 20ML ONE (13:04)
[2020-01-03] MEDS ORDERED: FLUMAZENIL 0.1 MG/1 ML, 5ML ONE (13:04)
[2020-01-03 14:44] VITALS: BP 99/65
[2020-01-03] MEDS ORDERED: INSULIN GLARGINE 100 UNITS/ML, PEN SQ-INSULIN SCH (21:00)
[2020-01-03 21:36] VITALS: BP 99/67
[2020-01-03] MEDS: FUROSEMIDE 40 MG TABLET PO SCH (21:51)
[2020-01-03] MEDS: CEFTRIAXONE PMX 1GM/50ML 50 ML IV SCH (22:41)
[2020-01-03] MEDS: TEMAZEPAM 15 MG CAPSULE PO PRN (22:44)
[2020-01-04] VITALS (9 sets, daily range): BP systolic 82–103; BP diastolic 41–57
[2020-01-04 01:35] LABS: BASOPHILS % (AUTO) 0 % (0-1); EOSINOPHILS # (AUTO) 0.09 x10^3/uL (0-0.4); EOSINOPHILS % (AUTO) 1 % (1-7); LYMPHOCYTES # (AUTO) 0.67 x10^3/uL (1-3.4); LYMPHOCYTES % (AUTO) 5 % (22-44); MD NO; MEAN CORPUSCULAR HEMOGLOBIN 28.9 pg (27.5-34.5); MEAN CORPUSCULAR VOLUME 90.5 fL (81-97); MEAN PLATELET VOLUME 7.9 fL (7.4-10.4); MONOCYTES # (AUTO) 0.98 x10^3/uL (0.2-0.8); MONOCYTES % (AUTO) 8 % (2-9); NEUTROPHILS # (AUTO) 11.11 x10^3/uL (1.8-6.8); NEUTROPHILS % (AUTO) 86 % (42-75); PLATELET COUNT 234 x10^3/uL (130-400); RED BLOOD COUNT 3.66 x10^6/uL (4.38-5.82); RED CELL DISTRIBUTION WIDTH 15.1 % (9.4-14.8)
[2020-01-04 01:47] LABS: % IRON SATURATION 30 % (20-55); ANION GAP 9 mmol/L (5-15); CHLORIDE 102 mmol/L (98-107); CREATININE 3.33 mg/dL (0.7-1.3); IRON LEVEL 42 mcg/dL (65-175); TOTAL IRON BINDING CAPACITY 140 mcg/dL (250-450)
[2020-01-04 01:53] LABS: FREE T4 (FREE THYROXINE) 0.73 ng/dL (0.76-1.46)
[2020-01-04] MEDS: CALCIUM ACETATE 667 MG CAPSULE PO SCH ×4 (07:33→17:26)
[2020-01-04] MEDS: FUROSEMIDE 40 MG TABLET PO SCH ×2 (07:41→09:06)
[2020-01-04] MEDS: LEVOTHYROXINE 125 MCG TABLET PO SCH (07:41)
[2020-01-04] MEDS: AMIODARONE 200 MG TABLET PO SCH ×2 (07:41→09:31)
[2020-01-04] MEDS: CARVEDILOL 6.25 MG TABLET PO SCH ×2 (07:41→09:06)
[2020-01-04 08:31] LABS: C-REACTIVE PROTEIN, QUANT 8.5 mg/dL (0.02-0.49)
[2020-01-04] MEDS ORDERED: SPIRONOLACTONE 50 MG TABLET PO SCH (09:00)
[2020-01-04] MEDS ORDERED: SODIUM CHLORIDE 0.9%, 500ML IVBOLUS ONE (09:15)
[2020-01-04] MEDS: HEPARIN 5,000 UNITS/ML, 1ML SQ SCH ×2 (09:30→17:26)
[2020-01-04] MEDS ORDERED: ALBUMIN HUMAN 25% 50 ML IV PRN (11:00)
[2020-01-04] MEDS: ALBUMIN HUMAN 25% 100 ML IV PRN (14:43)
[2020-01-04] MEDS: INSULIN LISPRO 100 UNITS/ML, PEN SQ-INSULIN SCH ×2 (17:26→21:02)
[2020-01-04] MEDS: CARVEDILOL 3.125 MG TABLET PO SCH (21:00)
[2020-01-04] MEDS: CEFTRIAXONE PMX 1GM/50ML 50 ML IV SCH (22:52)
[2020-01-04] MEDS: TEMAZEPAM 15 MG CAPSULE PO PRN (23:06)
[2020-01-04] MEDS: AZITHROMYCIN 500 MG in SODIUM CHLORIDE 0.9% 250 ML IV SCH (23:33)
[2020-01-05 01:11] VITALS: BP 72/63
[2020-01-05] MEDS: HEPARIN 5,000 UNITS/ML, 1ML SQ SCH ×3 (01:19→16:35)
[2020-01-05] MEDS ORDERED: SODIUM CHLORIDE 0.9%, 500ML IVBOLUS ONE (01:30)
[2020-01-05 02:47] VITALS: BP 112/58
[2020-01-05 05:39] LABS: BASOPHILS # (AUTO) 0.02 x10^3/uL (0-0.1); BASOPHILS % (AUTO) 0 % (0-1); EOSINOPHILS # (AUTO) 0.12 x10^3/uL (0-0.4); EOSINOPHILS % (AUTO) 1 % (1-7); LYMPHOCYTES # (AUTO) 0.78 x10^3/uL (1-3.4); LYMPHOCYTES % (AUTO) 7 % (22-44); MD NO; MEAN CORPUSCULAR HEMOGLOBIN 29.5 pg (27.5-34.5); MEAN CORPUSCULAR HGB CONC 32.7 g/dL (33.2-36.2); MEAN CORPUSCULAR VOLUME 90.1 fL (81-97); MONOCYTES # (AUTO) 1.14 x10^3/uL (0.2-0.8); MONOCYTES % (AUTO) 10 % (2-9); NEUTROPHILS # (AUTO) 9.52 x10^3/uL (1.8-6.8); NEUTROPHILS % (AUTO) 82 % (42-75); PLATELET COUNT 183 x10^3/uL (130-400); RED CELL DISTRIBUTION WIDTH 15.1 % (9.4-14.8)
[2020-01-05 05:44] LABS: CHLORIDE 100 mmol/L (98-107)
[2020-01-05 06:00] LABS: ALANINE AMINOTRANSFERASE 12 U/L (12-78); ALBUMIN 2.7 g/dL (3.4-5.0); ALKALINE PHOSPHATASE 178 U/L (45-117); BILIRUBIN,TOTAL 0.6 mg/dL (0.2-1.0); CALCIUM 8.1 mg/dL (8.5-10.1); CREATININE 3.39 mg/dL (0.7-1.3); TOTAL PROTEIN 5.9 g/dL (6.4-8.2)
[2020-01-05 06:11] LABS: ANION GAP 9 mmol/L (5-15)
[2020-01-05 07:39] VITALS: BP 80/30
[2020-01-05 07:58] VITALS: BP 92/44
[2020-01-05] MEDS: CALCIUM ACETATE 667 MG CAPSULE PO SCH ×3 (08:48→16:35)
[2020-01-05] MEDS: CARVEDILOL 3.125 MG TABLET PO SCH ×2 (08:48→22:03)
[2020-01-05] MEDS: AMIODARONE 200 MG TABLET PO SCH (08:48)
[2020-01-05] MEDS: LEVOTHYROXINE 125 MCG TABLET PO SCH (08:48)
[2020-01-05] MEDS: INSULIN LISPRO 100 UNITS/ML, PEN SQ-INSULIN SCH ×4 (08:48→22:03)
[2020-01-05 12:15] VITALS: BP 99/58
[2020-01-05] MEDS: ERGOCALCIFEROL 50,000 UNIT CAPSULE PO SCH (14:22)
[2020-01-05] MEDS: MIDODRINE 5 MG TABLET PO SCH ×3 (14:22→22:03)
[2020-01-05] MEDS: ALBUMIN HUMAN 25% 100 ML IV PRN (18:31)
[2020-01-05] MEDS: ACETAMINOPHEN 325 MG TABLET PO PRN (20:39)
[2020-01-05 21:36] VITALS: BP 106/71
[2020-01-05] MEDS: INSULIN GLARGINE 100 UNITS/ML, PEN SQ-INSULIN SCH (22:03)
[2020-01-05] MEDS: CEFTRIAXONE PMX 1GM/50ML 50 ML IV SCH (22:45)
[2020-01-05] MEDS: TEMAZEPAM 15 MG CAPSULE PO PRN (23:13)
[2020-01-05] MEDS: AZITHROMYCIN 500 MG in SODIUM CHLORIDE 0.9% 250 ML IV SCH (23:24)
[2020-01-06 00:46] VITALS: BP 139/75
[2020-01-06] MEDS: HEPARIN 5,000 UNITS/ML, 1ML SQ SCH ×3 (01:06→17:06)
[2020-01-06 06:05] LABS: MEAN CORPUSCULAR HEMOGLOBIN 29.6 pg (27.5-34.5); MEAN CORPUSCULAR HGB CONC 32.7 g/dL (33.2-36.2); MEAN CORPUSCULAR VOLUME 90.5 fL (81-97); MEAN PLATELET VOLUME 7.8 fL (7.4-10.4); PLATELET COUNT 180 x10^3/uL (130-400); RED CELL DISTRIBUTION WIDTH 15.3 % (9.4-14.8)
[2020-01-06 06:20] LABS: ALBUMIN 2.7 g/dL (3.4-5.0); ANION GAP 8 mmol/L (5-15); CALCIUM 8.4 mg/dL (8.5-10.1); CHLORIDE 99 mmol/L (98-107)
[2020-01-06 06:25] LABS: ALANINE AMINOTRANSFERASE 18 U/L (12-78); ALKALINE PHOSPHATASE 191 U/L (45-117); BILIRUBIN,TOTAL 0.8 mg/dL (0.2-1.0); CREATININE 2.82 mg/dL (0.7-1.3); TOTAL PROTEIN 5.9 g/dL (6.4-8.2)
[2020-01-06 06:29] VITALS: BP 86/57
[2020-01-06 06:30] LABS: BASOPHILS % (AUTO) 0 % (0-1); EOSINOPHILS # (AUTO) 0.19 x10^3/uL (0-0.4); EOSINOPHILS % (AUTO) 2 % (1-7); LYMPHOCYTES % (AUTO) 6 % (22-44); MD SCAN; MONOCYTES # (AUTO) 1.12 x10^3/uL (0.2-0.8); MONOCYTES % (AUTO) 9 % (2-9); NEUTROPHILS % (AUTO) 84 % (42-75)
[2020-01-06] MEDS: INSULIN LISPRO 100 UNITS/ML, PEN SQ-INSULIN SCH ×4 (07:19→20:52)
[2020-01-06] MEDS: CALCIUM ACETATE 667 MG CAPSULE PO SCH ×3 (08:12→16:55)
[2020-01-06] MEDS: MIDODRINE 5 MG TABLET PO SCH ×4 (08:13→20:52)
[2020-01-06] MEDS: LEVOTHYROXINE 125 MCG TABLET PO SCH (08:13)
[2020-01-06] MEDS: AMIODARONE 200 MG TABLET PO SCH (08:13)
[2020-01-06] MEDS: CARVEDILOL 3.125 MG TABLET PO SCH (08:15)
[2020-01-06 11:28] VITALS: BP 91/50
[2020-01-06] MEDS: DOXYCYCLINE 100MG TABLET PO SCH ×2 (11:37→20:52)
[2020-01-06] MEDS: AMOXICILLIN/CLAV 875-125MG TABLET PO SCH ×2 (11:37→20:52)
[2020-01-06] MEDS: ACETAMINOPHEN 325 MG TABLET PO PRN ×3 (12:25→22:57)
[2020-01-06 12:40] VITALS: BP 90/50
[2020-01-06 15:25] LABS: TROPONIN I 0.112 ng/mL (0.000-0.045)
[2020-01-06 19:06] VITALS: BP 98/61
[2020-01-06] MEDS: TRAZODONE 50MG TABLET PO PRN (20:51)
[2020-01-06 20:53] LABS: TROPONIN I 0.112 ng/mL (0.000-0.045)
[2020-01-06] MEDS: INSULIN GLARGINE 100 UNITS/ML, PEN SQ-INSULIN SCH (20:53)
[2020-01-07 00:14] VITALS: BP 105/59
[2020-01-07] MEDS: HEPARIN 5,000 UNITS/ML, 1ML SQ SCH ×3 (00:43→16:31)
[2020-01-07] MEDS ORDERED: TRAZODONE 50MG TABLET PO ONE (01:00)
[2020-01-07 02:49] LABS: ALANINE AMINOTRANSFERASE 16 U/L (12-78); ALBUMIN 2.6 g/dL (3.4-5.0); ANION GAP 7 mmol/L (5-15); CALCIUM 8.3 mg/dL (8.5-10.1); CHLORIDE 99 mmol/L (98-107); CREATININE 3.63 mg/dL (0.7-1.3)
[2020-01-07 02:51] LABS: ALKALINE PHOSPHATASE 211 U/L (45-117); BILIRUBIN,TOTAL 0.5 mg/dL (0.2-1.0)
[2020-01-07 02:53] LABS: TROPONIN I 0.115 ng/mL (0.000-0.045)
[2020-01-07 02:57] LABS: MEAN CORPUSCULAR HEMOGLOBIN 29.7 pg (27.5-34.5); MEAN CORPUSCULAR HGB CONC 32.7 g/dL (33.2-36.2); MEAN CORPUSCULAR VOLUME 90.9 fL (81-97); MEAN PLATELET VOLUME 7.8 fL (7.4-10.4); PLATELET COUNT 219 x10^3/uL (130-400); RED BLOOD COUNT 3.33 x10^6/uL (4.38-5.82); RED CELL DISTRIBUTION WIDTH 15.4 % (9.4-14.8)
[2020-01-07 03:10] LABS: MD YES
[2020-01-07 03:11] LABS: EOS#(MANUAL) 0.33 x10^3/uL (0.0-0.4); EOS% (MANUAL) 2 % (1-7); LYMPH#(MANUAL) 0.82 x10^3/uL (1-3.4); LYMPHS% (MANUAL) 5 % (22-44); METAMYELOCYTES# (MANUAL) 0.16 x10^3/uL (0-0); METAMYELOCYTES% (MANUAL) 1 % (0-1); MONOS% (MANUAL) 11 % (2-9); MYELOCYTES# (MANUAL) 0.16 x10^3/uL (0-0); MYELOCYTES% (MANUAL) 1 % (0-0); REACTIVE LYMPHS # (MANUAL) 0.49 x10^3/uL (0-0); REACTIVE LYMPHS % (MANUAL) 3 % (0-0); SEG#(MANUAL) 12.63 x10^3/uL (1.8-6.8); SEGS% (MANUAL) 77 % (42-75)
[2020-01-07 03:12] LABS: ANISOCYTOSIS 1+; OVALOCYTES 1+; POLYCHROMASIA 1+
[2020-01-07 03:13] LABS: <PLATELET ESTIMATE> ADEQUATE; <PLT MORPHOLOGY> NORMAL PLT MORPH
[2020-01-07] MEDS: ACETAMINOPHEN 325 MG TABLET PO PRN (04:14)
[2020-01-07 06:37] VITALS: BP 95/61
[2020-01-07] MEDS: AMIODARONE 200 MG TABLET PO SCH (08:19)
[2020-01-07] MEDS: INSULIN LISPRO 100 UNITS/ML, PEN SQ-INSULIN SCH ×4 (08:19→20:01)
[2020-01-07] MEDS: CALCIUM ACETATE 667 MG CAPSULE PO SCH ×3 (08:19→16:31)
[2020-01-07] MEDS: MIDODRINE 5 MG TABLET PO SCH ×3 (08:20→20:42)
[2020-01-07] MEDS: LEVOTHYROXINE 125 MCG TABLET PO SCH (08:20)
[2020-01-07] MEDS: DOXYCYCLINE 100MG TABLET PO SCH ×2 (08:20→20:43)
[2020-01-07] MEDS ORDERED: AMPICILLIN/SULBACTAM 1,500 MG in SODIUM CHLORIDE 0.9% 50 ML IV SCH (09:00)
[2020-01-07] MEDS ORDERED: LIDODERM 5% PATCH TD PRN (09:30)
[2020-01-07 12:05] VITALS: BP 115/57
[2020-01-07 18:17] VITALS: BP 93/54
[2020-01-07] MEDS: GUAIFENESIN/DM 200-20MG, 10ML UDC PO PRN (20:42)
[2020-01-07] MEDS: INSULIN GLARGINE 100 UNITS/ML, PEN SQ-INSULIN SCH (20:44)
[2020-01-07] MEDS: TRAZODONE 50MG TABLET PO PRN (20:44)
[2020-01-08 00:39] VITALS: BP 97/56
[2020-01-08] MEDS: HEPARIN 5,000 UNITS/ML, 1ML SQ SCH ×3 (01:00→17:27)
[2020-01-08 05:01] LABS: BASOPHILS # (AUTO) 0.03 x10^3/uL (0-0.1); BASOPHILS % (AUTO) 0 % (0-1); EOSINOPHILS # (AUTO) 0.25 x10^3/uL (0-0.4); EOSINOPHILS % (AUTO) 2 % (1-7); LYMPHOCYTES # (AUTO) 0.83 x10^3/uL (1-3.4); LYMPHOCYTES % (AUTO) 6 % (22-44); MD NO; MEAN CORPUSCULAR HEMOGLOBIN 29.5 pg (27.5-34.5); MEAN CORPUSCULAR HGB CONC 32.4 g/dL (33.2-36.2); MEAN CORPUSCULAR VOLUME 91.1 fL (81-97); MONOCYTES # (AUTO) 1.26 x10^3/uL (0.2-0.8); MONOCYTES % (AUTO) 8 % (2-9); NEUTROPHILS # (AUTO) 12.63 x10^3/uL (1.8-6.8); NEUTROPHILS % (AUTO) 84 % (42-75); PLATELET COUNT 233 x10^3/uL (130-400); RED BLOOD COUNT 3.45 x10^6/uL (4.38-5.82); RED CELL DISTRIBUTION WIDTH 15.3 % (9.4-14.8)
[2020-01-08 05:13] LABS: ALBUMIN 2.7 g/dL (3.4-5.0); ANION GAP 6 mmol/L (5-15); CALCIUM 8.8 mg/dL (8.5-10.1); CHLORIDE 99 mmol/L (98-107)
[2020-01-08 05:16] LABS: ALANINE AMINOTRANSFERASE 16 U/L (12-78); ALKALINE PHOSPHATASE 198 U/L (45-117); BILIRUBIN,TOTAL 0.6 mg/dL (0.2-1.0); CREATININE 3.28 mg/dL (0.7-1.3); TOTAL PROTEIN 6.4 g/dL (6.4-8.2)
[2020-01-08 06:50] VITALS: BP 106/72
[2020-01-08] MEDS: INSULIN LISPRO 100 UNITS/ML, PEN SQ-INSULIN SCH ×4 (07:00→20:12)
[2020-01-08] MEDS: AMIODARONE 200 MG TABLET PO SCH (07:59)
[2020-01-08] MEDS: LEVOTHYROXINE 125 MCG TABLET PO SCH (07:59)
[2020-01-08] MEDS: MIDODRINE 5 MG TABLET PO SCH ×3 (07:59→20:10)
[2020-01-08] MEDS: CALCIUM ACETATE 667 MG CAPSULE PO SCH ×3 (07:59→17:26)
[2020-01-08] MEDS: DOXYCYCLINE 100MG TABLET PO SCH ×2 (08:00→20:10)
[2020-01-08] MEDS: GUAIFENESIN/DM 200-20MG, 10ML UDC PO PRN ×2 (08:06→20:10)
[2020-01-08] MEDS: AMPICILLIN/SULBACTAM 3 GM in SODIUM CHLORIDE 0.9% 100 ML IV SCH (13:51)
[2020-01-08 14:01] VITALS: BP 99/67
[2020-01-08 18:38] VITALS: BP 100/66
[2020-01-08] MEDS: INSULIN GLARGINE 100 UNITS/ML, PEN SQ-INSULIN SCH (20:12)
[2020-01-09 00:34] VITALS: BP 106/69
[2020-01-09] MEDS: HEPARIN 5,000 UNITS/ML, 1ML SQ SCH ×3 (01:00→20:05)
[2020-01-09 05:40] LABS: MEAN CORPUSCULAR HEMOGLOBIN 29.5 pg (27.5-34.5); MEAN CORPUSCULAR HGB CONC 32.4 g/dL (33.2-36.2); MEAN PLATELET VOLUME 7.4 fL (7.4-10.4); PLATELET COUNT 228 x10^3/uL (130-400); RED BLOOD COUNT 3.47 x10^6/uL (4.38-5.82); RED CELL DISTRIBUTION WIDTH 15.2 % (9.4-14.8)
[2020-01-09 05:49] LABS: CALCIUM 8.8 mg/dL (8.5-10.1); CHLORIDE 97 mmol/L (98-107)
[2020-01-09 05:55] LABS: ALANINE AMINOTRANSFERASE 16 U/L (12-78); ALBUMIN 2.6 g/dL (3.4-5.0); ALKALINE PHOSPHATASE 201 U/L (45-117); ANION GAP 10 mmol/L (5-15); BILIRUBIN,TOTAL 0.4 mg/dL (0.2-1.0); CREATININE 3.99 mg/dL (0.7-1.3); TOTAL PROTEIN 6.4 g/dL (6.4-8.2)
[2020-01-09 06:46] LABS: MD YES
[2020-01-09 06:52] VITALS: BP 98/67
[2020-01-09 06:53] LABS: BAND#(MANUAL) 0.56 x10^3/uL; BANDS%(MANUAL) 4 % (0-7); EOS#(MANUAL) 0.85 x10^3/uL (0.0-0.4); EOS% (MANUAL) 6 % (1-7); LYMPH#(MANUAL) 1.27 x10^3/uL (1-3.4); LYMPHS% (MANUAL) 9 % (22-44); METAMYELOCYTES# (MANUAL) 0.14 x10^3/uL (0-0); METAMYELOCYTES% (MANUAL) 1 % (0-1); MONOS#(MANUAL) 0.85 x10^3/uL (0.3-2.7); MONOS% (MANUAL) 6 % (2-9); MYELOCYTES# (MANUAL) 0.14 x10^3/uL (0-0); MYELOCYTES% (MANUAL) 1 % (0-0); REACTIVE LYMPHS # (MANUAL) 0.14 x10^3/uL (0-0); REACTIVE LYMPHS % (MANUAL) 1 % (0-0); SEG#(MANUAL) 10.15 x10^3/uL (1.8-6.8); SEGS% (MANUAL) 72 % (42-75)
[2020-01-09 06:54] LABS: <PLATELET ESTIMATE> ADEQUATE; <PLT MORPHOLOGY> NORMAL PLT MORPH; ANISOCYTOSIS 1+; POLYCHROMASIA 1+
[2020-01-09] MEDS: INSULIN LISPRO 100 UNITS/ML, PEN SQ-INSULIN SCH ×4 (07:00→20:02)
[2020-01-09] MEDS: ASPIRIN 81 MG TABLET CHEW PO SCH (08:34)
[2020-01-09] MEDS: CALCIUM ACETATE 667 MG CAPSULE PO SCH ×3 (08:34→18:34)
[2020-01-09] MEDS: GUAIFENESIN/DM 200-20MG, 10ML UDC PO PRN ×2 (08:34→15:24)
[2020-01-09] MEDS: MIDODRINE 5 MG TABLET PO SCH ×3 (08:34→20:02)
[2020-01-09] MEDS: LEVOTHYROXINE 125 MCG TABLET PO SCH (08:34)
[2020-01-09] MEDS: AMIODARONE 200 MG TABLET PO SCH (08:35)
[2020-01-09 13:15] VITALS: BP 93/53
[2020-01-09] MEDS: AMPICILLIN/SULBACTAM 3 GM in SODIUM CHLORIDE 0.9% 100 ML IV SCH (14:06)
[2020-01-09] MEDS: DOXYCYCLINE 100MG TABLET PO SCH ×2 (14:06→20:02)
[2020-01-09] MEDS ORDERED: ALBUTEROL/IPRATROPIUM 2.5MG/0.5MG, 3 ML ONE (15:33)
[2020-01-09] MEDS: GUAIFENESIN 200 MG TABLET PO SCH ×2 (18:34→20:01)
[2020-01-09 18:42] VITALS: BP 98/61
[2020-01-09] MEDS: INSULIN GLARGINE 100 UNITS/ML, PEN SQ-INSULIN SCH (20:04)
[2020-01-10 00:30] VITALS: BP 104/65
[2020-01-10] MEDS: HEPARIN 5,000 UNITS/ML, 1ML SQ SCH ×3 (04:22→20:36)
[2020-01-10] MEDS: GUAIFENESIN 200 MG TABLET PO SCH ×4 (05:07→20:36)
[2020-01-10 05:40] LABS: BASOPHILS # (AUTO) 0.02 x10^3/uL (0-0.1); BASOPHILS % (AUTO) 0 % (0-1); EOSINOPHILS # (AUTO) 0.09 x10^3/uL (0-0.4); EOSINOPHILS % (AUTO) 1 % (1-7); LYMPHOCYTES # (AUTO) 1.05 x10^3/uL (1-3.4); LYMPHOCYTES % (AUTO) 8 % (22-44); MD NO; MEAN CORPUSCULAR HEMOGLOBIN 29.2 pg (27.5-34.5); MEAN CORPUSCULAR HGB CONC 32.3 g/dL (33.2-36.2); MEAN CORPUSCULAR VOLUME 90.4 fL (81-97); MEAN PLATELET VOLUME 7.7 fL (7.4-10.4); MONOCYTES # (AUTO) 1.09 x10^3/uL (0.2-0.8); MONOCYTES % (AUTO) 9 % (2-9); NEUTROPHILS # (AUTO) 10.55 x10^3/uL (1.8-6.8); NEUTROPHILS % (AUTO) 83 % (42-75); PLATELET COUNT 192 x10^3/uL (130-400); RED BLOOD COUNT 3.46 x10^6/uL (4.38-5.82); RED CELL DISTRIBUTION WIDTH 15.5 % (9.4-14.8)
[2020-01-10] MEDS: INSULIN LISPRO 100 UNITS/ML, PEN SQ-INSULIN SCH ×4 (07:23→20:37)
[2020-01-10 07:53] VITALS: BP 109/71
[2020-01-10] MEDS: GUAIFENESIN/DM 200-20MG, 10ML UDC PO PRN ×2 (08:17→20:44)
[2020-01-10] MEDS: ASPIRIN 81 MG TABLET CHEW PO SCH (08:17)
[2020-01-10] MEDS: CALCIUM ACETATE 667 MG CAPSULE PO SCH ×3 (08:17→17:09)
[2020-01-10] MEDS: LEVOTHYROXINE 125 MCG TABLET PO SCH (08:17)
[2020-01-10] MEDS: MIDODRINE 5 MG TABLET PO SCH ×3 (08:17→20:36)
[2020-01-10] MEDS: AMIODARONE 200 MG TABLET PO SCH (08:17)
[2020-01-10] MEDS: DOXYCYCLINE 100MG TABLET PO SCH ×2 (11:56→20:36)
[2020-01-10 14:10] VITALS: BP 84/50
[2020-01-10] MEDS: AMPICILLIN/SULBACTAM 3 GM in SODIUM CHLORIDE 0.9% 100 ML IV SCH (14:54)
[2020-01-10] MEDS ORDERED: ALBUMIN HUMAN 25%, 25GM/100ML ONE (15:57)
[2020-01-10 20:15] VITALS: BP 105/65
[2020-01-10] MEDS: INSULIN GLARGINE 100 UNITS/ML, PEN SQ-INSULIN SCH (20:38)
[2020-01-10] MEDS: TRAZODONE 50MG TABLET PO PRN (23:42)
[2020-01-11 01:05] VITALS: BP 109/69
[2020-01-11] MEDS: HEPARIN 5,000 UNITS/ML, 1ML SQ SCH ×2 (04:00→12:36)
[2020-01-11 05:46] LABS: MEAN CORPUSCULAR HEMOGLOBIN 29.1 pg (27.5-34.5); MEAN CORPUSCULAR HGB CONC 31.7 g/dL (33.2-36.2); MEAN CORPUSCULAR VOLUME 91.8 fL (81-97); MEAN PLATELET VOLUME 7.8 fL (7.4-10.4); PLATELET COUNT 215 x10^3/uL (130-400); RED BLOOD COUNT 3.69 x10^6/uL (4.38-5.82); RED CELL DISTRIBUTION WIDTH 15.5 % (9.4-14.8)
[2020-01-11 05:57] LABS: ALBUMIN 2.8 g/dL (3.4-5.0); ANION GAP 10 mmol/L (5-15); CALCIUM 8.9 mg/dL (8.5-10.1); CHLORIDE 95 mmol/L (98-107)
[2020-01-11 06:01] LABS: ALANINE AMINOTRANSFERASE 17 U/L (12-78); ALKALINE PHOSPHATASE 181 U/L (45-117); BILIRUBIN,TOTAL 0.9 mg/dL (0.2-1.0); CREATININE 3.94 mg/dL (0.7-1.3)
[2020-01-11] MEDS: GUAIFENESIN 200 MG TABLET PO SCH ×4 (06:22→20:58)
[2020-01-11 06:27] VITALS: BP 106/63
[2020-01-11] MEDS: GUAIFENESIN/DM 200-20MG, 10ML UDC PO PRN (06:27)
[2020-01-11 06:34] LABS: MD YES
[2020-01-11 06:38] LABS: NRBC % (MANUAL) 1 % (0-1); SEGS% (MANUAL) 78 % (42-75)
[2020-01-11 06:40] LABS: METAMYELOCYTES% (MANUAL) 2 % (0-1); MONOS% (MANUAL) 7 % (2-9); MYELOCYTES# (MANUAL) 0.15 x10^3/uL (0-0); MYELOCYTES% (MANUAL) 1 % (0-0); REACTIVE LYMPHS % (MANUAL) 2 % (0-0)
[2020-01-11 06:41] LABS: ANISOCYTOSIS 1+; LYMPH#(MANUAL) 1.35 x10^3/uL (1-3.4); LYMPHS% (MANUAL) 9 % (22-44); MONOS#(MANUAL) 1.05 x10^3/uL (0.3-2.7); POLYCHROMASIA 1+
[2020-01-11 06:42] LABS: <PLATELET ESTIMATE> ADEQUATE; <PLT MORPHOLOGY> NORMAL PLT MORPH
[2020-01-11] MEDS: MIDODRINE 5 MG TABLET PO SCH ×3 (07:49→20:58)
[2020-01-11] MEDS: CALCIUM ACETATE 667 MG CAPSULE PO SCH ×3 (08:25→16:16)
[2020-01-11] MEDS: INSULIN LISPRO 100 UNITS/ML, PEN SQ-INSULIN SCH ×4 (09:46→20:59)
[2020-01-11 12:02] VITALS: BP 96/47
[2020-01-11] MEDS: LEVOTHYROXINE 125 MCG TABLET PO SCH (12:36)
[2020-01-11] MEDS: ASPIRIN 81 MG TABLET CHEW PO SCH (12:36)
[2020-01-11] MEDS: DOXYCYCLINE 100MG TABLET PO SCH ×2 (12:36→20:58)
[2020-01-11] MEDS: AMIODARONE 200 MG TABLET PO SCH (12:37)
[2020-01-11] MEDS: AMPICILLIN/SULBACTAM 3 GM in SODIUM CHLORIDE 0.9% 100 ML IV SCH (14:45)
[2020-01-11 14:51] LABS: CELLS COUNTED 56
[2020-01-11 20:01] VITALS: BP 108/69
[2020-01-11] MEDS ORDERED: APIXABAN 5 MG TABLET PO SCH (21:00)
[2020-01-11] MEDS ORDERED: INSULIN GLARGINE 100 UNITS/ML, PEN SQ-INSULIN SCH (21:00)
[2020-01-12 01:14] VITALS: BP 105/65
[2020-01-12 05:08] LABS: MEAN CORPUSCULAR HGB CONC 32.7 g/dL (33.2-36.2); MEAN CORPUSCULAR VOLUME 91.7 fL (81-97); MEAN PLATELET VOLUME 7.8 fL (7.4-10.4); PLATELET COUNT 196 x10^3/uL (130-400); RED BLOOD COUNT 3.38 x10^6/uL (4.38-5.82); RED CELL DISTRIBUTION WIDTH 15.5 % (9.4-14.8)
[2020-01-12 05:17] LABS: CHLORIDE 98 mmol/L (98-107)
[2020-01-12 05:24] LABS: ALANINE AMINOTRANSFERASE 17 U/L (12-78); ALBUMIN 2.7 g/dL (3.4-5.0); ALKALINE PHOSPHATASE 188 U/L (45-117); ANION GAP 7 mmol/L (5-15); BILIRUBIN,TOTAL 0.8 mg/dL (0.2-1.0); CREATININE 2.98 mg/dL (0.7-1.3); TOTAL PROTEIN 5.9 g/dL (6.4-8.2)
[2020-01-12] MEDS: GUAIFENESIN 200 MG TABLET PO SCH ×4 (05:35→21:03)
[2020-01-12 05:55] LABS: BASOPHILS # (AUTO) 0.04 x10^3/uL (0-0.1); BASOPHILS % (AUTO) 0 % (0-1); EOSINOPHILS # (AUTO) 0.33 x10^3/uL (0-0.4); EOSINOPHILS % (AUTO) 2 % (1-7); LYMPHOCYTES # (AUTO) 1.16 x10^3/uL (1-3.4); LYMPHOCYTES % (AUTO) 8 % (22-44); MD SCAN; MONOCYTES # (AUTO) 1.24 x10^3/uL (0.2-0.8); MONOCYTES % (AUTO) 8 % (2-9); NEUTROPHILS # (AUTO) 12.55 x10^3/uL (1.8-6.8); NEUTROPHILS % (AUTO) 82 % (42-75)
[2020-01-12] MEDS: INSULIN LISPRO 100 UNITS/ML, PEN SQ-INSULIN SCH ×4 (07:00→20:49)
[2020-01-12 07:21] VITALS: BP 98/61
[2020-01-12] MEDS: MIDODRINE 5 MG TABLET PO SCH ×3 (07:49→21:04)
[2020-01-12] MEDS: DOXYCYCLINE 100MG TABLET PO SCH ×2 (07:49→21:03)
[2020-01-12] MEDS: LEVOTHYROXINE 125 MCG TABLET PO SCH (07:50)
[2020-01-12] MEDS: CALCIUM ACETATE 667 MG CAPSULE PO SCH ×3 (07:50→16:19)
[2020-01-12] MEDS: AMIODARONE 200 MG TABLET PO SCH ×3 (07:50→21:03)
[2020-01-12] MEDS: PIPERACILLIN/TAZO/PMX 3.375GM 50 ML IV SCH ×3 (07:50→21:04)
[2020-01-12] MEDS: GUAIFENESIN/DM 200-20MG, 10ML UDC PO PRN (07:56)
[2020-01-12] MEDS ORDERED: HEPARIN 5,000 UNITS/ML, 1ML SQ SCH (10:30)
[2020-01-12] MEDS: ERGOCALCIFEROL 50,000 UNIT CAPSULE PO SCH (11:49)
[2020-01-12 12:22] VITALS: BP 100/62
[2020-01-12] MEDS: APIXABAN 2.5 MG TABLET PO SCH ×2 (12:40→21:03)
[2020-01-12 18:39] VITALS: BP 97/57
[2020-01-12] MEDS ORDERED: INSULIN GLARGINE 100 UNITS/ML, PEN SQ-INSULIN SCH (21:00)
[2020-01-13 01:16] VITALS: BP 91/52
[2020-01-13] MEDS: PIPERACILLIN/TAZO/PMX 3.375GM 50 ML IV SCH ×4 (03:18→21:17)
[2020-01-13] MEDS: LEVOTHYROXINE 150 MCG TABLET PO SCH (05:38)
[2020-01-13] MEDS: GUAIFENESIN 200 MG TABLET PO SCH ×4 (05:38→21:18)
[2020-01-13] MEDS: GUAIFENESIN/DM 200-20MG, 10ML UDC PO PRN (05:41)
[2020-01-13 05:50] LABS: MEAN CORPUSCULAR HEMOGLOBIN 29.3 pg (27.5-34.5); MEAN CORPUSCULAR HGB CONC 32.5 g/dL (33.2-36.2); MEAN CORPUSCULAR VOLUME 90.1 fL (81-97); MEAN PLATELET VOLUME 7.9 fL (7.4-10.4); PLATELET COUNT 199 x10^3/uL (130-400); RED BLOOD COUNT 3.42 x10^6/uL (4.38-5.82); RED CELL DISTRIBUTION WIDTH 15.8 % (9.4-14.8)
[2020-01-13 06:02] LABS: ALBUMIN 2.8 g/dL (3.4-5.0); ANION GAP 6 mmol/L (5-15); CHLORIDE 95 mmol/L (98-107)
[2020-01-13 06:06] LABS: ALANINE AMINOTRANSFERASE 18 U/L (12-78); ALKALINE PHOSPHATASE 183 U/L (45-117); BILIRUBIN,TOTAL 0.7 mg/dL (0.2-1.0); CREATININE 3.19 mg/dL (0.7-1.3)
[2020-01-13 06:22] LABS: BASOPHILS % (AUTO) 0 % (0-1); EOSINOPHILS # (AUTO) 0.11 x10^3/uL (0-0.4); EOSINOPHILS % (AUTO) 1 % (1-7); LYMPHOCYTES # (AUTO) 1.09 x10^3/uL (1-3.4); LYMPHOCYTES % (AUTO) 8 % (22-44); MD SCAN; MONOCYTES # (AUTO) 1.18 x10^3/uL (0.2-0.8); MONOCYTES % (AUTO) 8 % (2-9); NEUTROPHILS # (AUTO) 11.73 x10^3/uL (1.8-6.8); NEUTROPHILS % (AUTO) 83 % (42-75)
[2020-01-13 06:55] VITALS: BP 108/57
[2020-01-13] MEDS: INSULIN LISPRO 100 UNITS/ML, PEN SQ-INSULIN SCH ×4 (07:00→21:21)
[2020-01-13] MEDS: APIXABAN 2.5 MG TABLET PO SCH ×2 (08:09→21:18)
[2020-01-13] MEDS: AMIODARONE 200 MG TABLET PO SCH ×2 (08:09→21:18)
[2020-01-13] MEDS: DOXYCYCLINE 100MG TABLET PO SCH ×2 (08:09→21:18)
[2020-01-13] MEDS: CALCIUM ACETATE 667 MG CAPSULE PO SCH ×3 (08:09→16:51)
[2020-01-13] MEDS: MIDODRINE 5 MG TABLET PO SCH ×3 (08:10→21:18)
[2020-01-13] MEDS ORDERED: ASPIRIN 81 MG TABLET CHEW PO SCH (09:00)
[2020-01-13 12:34] VITALS: BP 108/69
[2020-01-13 19:00] VITALS: BP 117/72
[2020-01-13] MEDS ORDERED: INSULIN GLARGINE 100 UNITS/ML, PEN SQ-INSULIN SCH (21:00)
[2020-01-14 02:00] VITALS: BP 115/74
[2020-01-14] MEDS: PIPERACILLIN/TAZO/PMX 3.375GM 50 ML IV SCH (03:10)
[2020-01-14] MEDS: LEVOTHYROXINE 150 MCG TABLET PO SCH (05:23)
[2020-01-14] MEDS: GUAIFENESIN 200 MG TABLET PO SCH ×4 (05:23→21:24)
[2020-01-14 06:10] LABS: BASOPHILS # (AUTO) 0.02 x10^3/uL (0-0.1); BASOPHILS % (AUTO) 0 % (0-1); EOSINOPHILS # (AUTO) 0.17 x10^3/uL (0-0.4); EOSINOPHILS % (AUTO) 1 % (1-7); LYMPHOCYTES % (AUTO) 9 % (22-44); MD NO; MEAN CORPUSCULAR HEMOGLOBIN 29.5 pg (27.5-34.5); MEAN CORPUSCULAR HGB CONC 32.6 g/dL (33.2-36.2); MEAN CORPUSCULAR VOLUME 90.6 fL (81-97); MEAN PLATELET VOLUME 8.4 fL (7.4-10.4); MONOCYTES # (AUTO) 1.28 x10^3/uL (0.2-0.8); MONOCYTES % (AUTO) 8 % (2-9); NEUTROPHILS # (AUTO) 13.43 x10^3/uL (1.8-6.8); NEUTROPHILS % (AUTO) 82 % (42-75); PLATELET COUNT 202 x10^3/uL (130-400); RED BLOOD COUNT 3.42 x10^6/uL (4.38-5.82)
[2020-01-14 06:13] LABS: CALCIUM 8.5 mg/dL (8.5-10.1); CHLORIDE 96 mmol/L (98-107)
[2020-01-14 06:19] LABS: ALANINE AMINOTRANSFERASE 20 U/L (12-78); ALBUMIN 2.6 g/dL (3.4-5.0); ALKALINE PHOSPHATASE 172 U/L (45-117); ANION GAP 9 mmol/L (5-15); BILIRUBIN,TOTAL 0.7 mg/dL (0.2-1.0); CREATININE 3.49 mg/dL (0.7-1.3); TOTAL PROTEIN 6.2 g/dL (6.4-8.2)
[2020-01-14 06:52] VITALS: BP 104/69
[2020-01-14] MEDS: INSULIN LISPRO 100 UNITS/ML, PEN SQ-INSULIN SCH ×4 (07:37→21:26)
[2020-01-14] MEDS: CALCIUM ACETATE 667 MG CAPSULE PO SCH ×3 (08:00→17:06)
[2020-01-14] MEDS: MIDODRINE 5 MG TABLET PO SCH ×3 (12:27→21:24)
[2020-01-14] MEDS: APIXABAN 2.5 MG TABLET PO SCH ×2 (12:28→21:24)
[2020-01-14] MEDS: AMIODARONE 200 MG TABLET PO SCH ×2 (12:28→21:24)
[2020-01-14] MEDS: DOXYCYCLINE 100MG TABLET PO SCH ×2 (12:28→21:24)
[2020-01-14 12:36] VITALS: BP 97/59
[2020-01-14] MEDS: PIPERACILLIN/TAZO/PMX 2.25GM 50 ML IVPB SCH ×2 (14:07→22:49)
[2020-01-14 19:49] LABS: CULTURE INDICATED? YES; MICROSCOPIC INDICATED
[2020-01-14 20:34] VITALS: BP 102/68
[2020-01-14] MEDS: INSULIN GLARGINE 100 UNITS/ML, PEN SQ-INSULIN SCH (21:25)
[2020-01-15 00:29] VITALS: BP 107/65
[2020-01-15] MEDS: LEVOTHYROXINE 150 MCG TABLET PO SCH (05:40)
[2020-01-15] MEDS: GUAIFENESIN 200 MG TABLET PO SCH ×4 (05:40→19:59)
[2020-01-15 06:07] LABS: MEAN CORPUSCULAR HEMOGLOBIN 29.4 pg (27.5-34.5); MEAN CORPUSCULAR HGB CONC 32.4 g/dL (33.2-36.2); MEAN CORPUSCULAR VOLUME 90.8 fL (81-97); MEAN PLATELET VOLUME 8.8 fL (7.4-10.4); PLATELET COUNT 197 x10^3/uL (130-400); RED CELL DISTRIBUTION WIDTH 16.5 % (9.4-14.8)
[2020-01-15 06:13] LABS: ALANINE AMINOTRANSFERASE 21 U/L (12-78); ALBUMIN 2.7 g/dL (3.4-5.0); ANION GAP 8 mmol/L (5-15); CALCIUM 8.5 mg/dL (8.5-10.1); CHLORIDE 96 mmol/L (98-107); CREATININE 2.95 mg/dL (0.7-1.3)
[2020-01-15 06:15] LABS: ALKALINE PHOSPHATASE 191 U/L (45-117); BILIRUBIN,TOTAL 0.6 mg/dL (0.2-1.0); TOTAL PROTEIN 6.5 g/dL (6.4-8.2)
[2020-01-15 06:33] VITALS: BP 100/63
[2020-01-15] MEDS: PIPERACILLIN/TAZO/PMX 2.25GM 50 ML IVPB SCH ×3 (06:41→23:39)
[2020-01-15] MEDS: INSULIN LISPRO 100 UNITS/ML, PEN SQ-INSULIN SCH ×4 (07:00→20:01)
[2020-01-15 07:08] LABS: BASOPHILS # (AUTO) 0.01 x10^3/uL (0-0.1); BASOPHILS % (AUTO) 0 % (0-1); EOSINOPHILS # (AUTO) 0.14 x10^3/uL (0-0.4); EOSINOPHILS % (AUTO) 1 % (1-7); LYMPHOCYTES # (AUTO) 1.21 x10^3/uL (1-3.4); LYMPHOCYTES % (AUTO) 8 % (22-44); MD SCAN; MONOCYTES # (AUTO) 1.23 x10^3/uL (0.2-0.8); MONOCYTES % (AUTO) 8 % (2-9); NEUTROPHILS # (AUTO) 12.65 x10^3/uL (1.8-6.8); NEUTROPHILS % (AUTO) 83 % (42-75)
[2020-01-15] MEDS: APIXABAN 2.5 MG TABLET PO SCH (08:32)
[2020-01-15] MEDS: AMIODARONE 200 MG TABLET PO SCH ×2 (08:32→19:59)
[2020-01-15] MEDS: CALCIUM ACETATE 667 MG CAPSULE PO SCH ×3 (08:32→16:37)
[2020-01-15] MEDS: MIDODRINE 5 MG TABLET PO SCH ×3 (08:32→19:59)
[2020-01-15] MEDS: TAMSULOSIN 0.4 MG CAP.ER.24H PO SCH (08:32)
[2020-01-15] MEDS: DOXYCYCLINE 100MG TABLET PO SCH ×2 (08:32→19:59)
[2020-01-15 12:30] LABS: OCCULT BLOOD NEGATIVE (NEGATIVE)
[2020-01-15 12:52] VITALS: BP 85/53
[2020-01-15 18:44] VITALS: BP 109/71
[2020-01-15] MEDS: INSULIN GLARGINE 100 UNITS/ML, PEN SQ-INSULIN SCH (21:08)
[2020-01-16 00:24] VITALS: BP 105/61
[2020-01-16] MEDS: GUAIFENESIN 200 MG TABLET PO SCH ×4 (05:18→20:03)
[2020-01-16] MEDS: LEVOTHYROXINE 150 MCG TABLET PO SCH (05:18)
[2020-01-16 06:05] LABS: BASOPHILS # (AUTO) 0.04 x10^3/uL (0-0.1); BASOPHILS % (AUTO) 0 % (0-1); EOSINOPHILS # (AUTO) 0.19 x10^3/uL (0-0.4); EOSINOPHILS % (AUTO) 2 % (1-7); LYMPHOCYTES # (AUTO) 1.03 x10^3/uL (1-3.4); LYMPHOCYTES % (AUTO) 8 % (22-44); MD NO; MEAN CORPUSCULAR HEMOGLOBIN 29.7 pg (27.5-34.5); MEAN CORPUSCULAR VOLUME 90.2 fL (81-97); MEAN PLATELET VOLUME 8.8 fL (7.4-10.4); MONOCYTES # (AUTO) 1.17 x10^3/uL (0.2-0.8); MONOCYTES % (AUTO) 9 % (2-9); NEUTROPHILS # (AUTO) 10.36 x10^3/uL (1.8-6.8); NEUTROPHILS % (AUTO) 81 % (42-75); PLATELET COUNT 159 x10^3/uL (130-400); RED BLOOD COUNT 3.19 x10^6/uL (4.38-5.82); RED CELL DISTRIBUTION WIDTH 16.2 % (9.4-14.8)
[2020-01-16] MEDS: INSULIN LISPRO 100 UNITS/ML, PEN SQ-INSULIN SCH ×4 (07:00→20:03)
[2020-01-16 07:38] VITALS: BP 91/53
[2020-01-16] MEDS: CALCIUM ACETATE 667 MG CAPSULE PO SCH ×3 (08:00→16:52)
[2020-01-16] MEDS: MIDODRINE 5 MG TABLET PO SCH ×3 (12:41→20:03)
[2020-01-16] MEDS: AMIODARONE 200 MG TABLET PO SCH ×2 (12:41→20:03)
[2020-01-16] MEDS: TAMSULOSIN 0.4 MG CAP.ER.24H PO SCH (12:41)
[2020-01-16] MEDS: DOXYCYCLINE 100MG TABLET PO SCH (12:41)
[2020-01-16 12:43] VITALS: BP 99/66
[2020-01-16] MEDS: PIPERACILLIN/TAZO/PMX 2.25GM 50 ML IVPB SCH ×2 (12:46→19:48)
[2020-01-16 18:33] VITALS: BP 98/61
[2020-01-16] MEDS: INSULIN GLARGINE 100 UNITS/ML, PEN SQ-INSULIN SCH (20:04)
[2020-01-17 00:17] VITALS: BP 95/61
[2020-01-17] MEDS: PIPERACILLIN/TAZO/PMX 2.25GM 50 ML IVPB SCH ×3 (04:20→20:22)
[2020-01-17] MEDS: GUAIFENESIN 200 MG TABLET PO SCH ×4 (06:06→20:24)
[2020-01-17] MEDS: LEVOTHYROXINE 150 MCG TABLET PO SCH (06:06)
[2020-01-17 07:00] VITALS: BP 102/63
[2020-01-17] MEDS: TAMSULOSIN 0.4 MG CAP.ER.24H PO SCH (08:08)
[2020-01-17] MEDS: INSULIN LISPRO 100 UNITS/ML, PEN SQ-INSULIN SCH ×4 (08:08→20:24)
[2020-01-17] MEDS: CALCIUM ACETATE 667 MG CAPSULE PO SCH ×3 (08:08→17:10)
[2020-01-17] MEDS: AMIODARONE 200 MG TABLET PO SCH ×2 (08:09→20:24)
[2020-01-17] MEDS: MIDODRINE 5 MG TABLET PO SCH ×3 (08:09→20:24)
[2020-01-17 09:20] LABS: MEAN CORPUSCULAR HEMOGLOBIN 29.5 pg (27.5-34.5); MEAN CORPUSCULAR VOLUME 92.2 fL (81-97); MEAN PLATELET VOLUME 9.4 fL (7.4-10.4); PLATELET COUNT 181 x10^3/uL (130-400); RED BLOOD COUNT 3.28 x10^6/uL (4.38-5.82); RED CELL DISTRIBUTION WIDTH 16.7 % (9.4-14.8)
[2020-01-17 09:36] LABS: MD YES
[2020-01-17 09:40] LABS: BAND#(MANUAL) 2.78 x10^3/uL; BANDS%(MANUAL) 24 % (0-7); LYMPH#(MANUAL) 0.93 x10^3/uL (1-3.4); LYMPHS% (MANUAL) 8 % (22-44); MONOS#(MANUAL) 0.46 x10^3/uL (0.3-2.7); MONOS% (MANUAL) 4 % (2-9); SEG#(MANUAL) 7.42 x10^3/uL (1.8-6.8); SEGS% (MANUAL) 64 % (42-75)
[2020-01-17 09:43] LABS: ANISOCYTOSIS 1+
[2020-01-17 09:48] LABS: <PLATELET ESTIMATE> ADEQUATE; HYPOCHROMIA 1+; POLYCHROMASIA 1+
[2020-01-17 09:49] LABS: <PLT MORPHOLOGY> NORMAL PLT MORPH; PMNS WITH VACUOLES 1+
[2020-01-17 13:10] VITALS: BP 99/61
[2020-01-17 18:30] VITALS: BP 105/67
[2020-01-17] MEDS ORDERED: INSULIN GLARGINE 100 UNITS/ML, PEN SQ-INSULIN SCH (21:00)
[2020-01-18 01:31] VITALS: BP 101/65
[2020-01-18] MEDS: PIPERACILLIN/TAZO/PMX 2.25GM 50 ML IVPB SCH (03:30)
[2020-01-18] MEDS: LEVOTHYROXINE 150 MCG TABLET PO SCH (05:12)
[2020-01-18] MEDS: GUAIFENESIN 200 MG TABLET PO SCH ×4 (05:12→20:09)
[2020-01-18 06:12] LABS: BASOPHILS # (AUTO) 0.02 x10^3/uL (0-0.1); BASOPHILS % (AUTO) 0 % (0-1); EOSINOPHILS # (AUTO) 0.17 x10^3/uL (0-0.4); EOSINOPHILS % (AUTO) 1 % (1-7); LYMPHOCYTES # (AUTO) 1.26 x10^3/uL (1-3.4); LYMPHOCYTES % (AUTO) 10 % (22-44); MD NO; MEAN CORPUSCULAR HEMOGLOBIN 29.9 pg (27.5-34.5); MEAN CORPUSCULAR HGB CONC 32.9 g/dL (33.2-36.2); MEAN PLATELET VOLUME 9.2 fL (7.4-10.4); MONOCYTES # (AUTO) 1.31 x10^3/uL (0.2-0.8); MONOCYTES % (AUTO) 10 % (2-9); NEUTROPHILS # (AUTO) 9.93 x10^3/uL (1.8-6.8); NEUTROPHILS % (AUTO) 78 % (42-75); PLATELET COUNT 212 x10^3/uL (130-400); RED BLOOD COUNT 3.27 x10^6/uL (4.38-5.82); RED CELL DISTRIBUTION WIDTH 17.5 % (9.4-14.8)
[2020-01-18 06:26] LABS: ALBUMIN 2.7 g/dL (3.4-5.0); ANION GAP 9 mmol/L (5-15); CALCIUM 8.5 mg/dL (8.5-10.1); CHLORIDE 95 mmol/L (98-107); CREATININE 3.18 mg/dL (0.7-1.3)
[2020-01-18 06:51] VITALS: BP 107/67
[2020-01-18] MEDS: DEXTROSE 5% 1,000 ML IV SCH (06:57)
[2020-01-18] MEDS ORDERED: DEXTROSE 50%, 50ML SYRINGE IVPush ONE (07:00)
[2020-01-18] MEDS: INSULIN LISPRO 100 UNITS/ML, PEN SQ-INSULIN SCH ×4 (08:17→20:08)
[2020-01-18] MEDS: TAMSULOSIN 0.4 MG CAP.ER.24H PO SCH (08:24)
[2020-01-18] MEDS: CALCIUM ACETATE 667 MG CAPSULE PO SCH ×3 (08:24→16:34)
[2020-01-18] MEDS: AMIODARONE 200 MG TABLET PO SCH ×2 (08:24→20:09)
[2020-01-18] MEDS: MIDODRINE 5 MG TABLET PO SCH ×3 (08:24→20:09)
[2020-01-18] MEDS ORDERED: REGADENOSON 0.4 MG/5 ML SYRINGE ONE (08:29)
[2020-01-18 11:29] VITALS: BP 103/63
[2020-01-18 13:56] VITALS: BP 105/70
[2020-01-18] MEDS ORDERED: LIDOCAINE 1%, 10ML ONE (14:52)
[2020-01-18 18:48] VITALS: BP 100/57
[2020-01-18] MEDS ORDERED: INSULIN GLARGINE 100 UNITS/ML, PEN SQ-INSULIN SCH (21:00)
[2020-01-19 00:37] VITALS: BP 102/70
[2020-01-19 04:56] LABS: ALBUMIN 2.4 g/dL (3.4-5.0); ANION GAP 10 mmol/L (5-15); CALCIUM 8.1 mg/dL (8.5-10.1); CHLORIDE 94 mmol/L (98-107); CREATININE 2.93 mg/dL (0.7-1.3)
[2020-01-19 04:58] LABS: BASOPHILS # (AUTO) 0.03 x10^3/uL (0-0.1); BASOPHILS % (AUTO) 0 % (0-1); EOSINOPHILS # (AUTO) 0.17 x10^3/uL (0-0.4); EOSINOPHILS % (AUTO) 2 % (1-7); LYMPHOCYTES # (AUTO) 0.79 x10^3/uL (1-3.4); LYMPHOCYTES % (AUTO) 8 % (22-44); MD NO; MEAN CORPUSCULAR HEMOGLOBIN 29.8 pg (27.5-34.5); MEAN CORPUSCULAR HGB CONC 32.7 g/dL (33.2-36.2); MEAN CORPUSCULAR VOLUME 91.2 fL (81-97); MEAN PLATELET VOLUME 8.9 fL (7.4-10.4); MONOCYTES # (AUTO) 0.83 x10^3/uL (0.2-0.8); MONOCYTES % (AUTO) 9 % (2-9); NEUTROPHILS # (AUTO) 7.84 x10^3/uL (1.8-6.8); NEUTROPHILS % (AUTO) 81 % (42-75); PLATELET COUNT 190 x10^3/uL (130-400); RED BLOOD COUNT 3.23 x10^6/uL (4.38-5.82)
[2020-01-19] MEDS: LEVOTHYROXINE 150 MCG TABLET PO SCH (05:34)
[2020-01-19] MEDS: GUAIFENESIN 200 MG TABLET PO SCH ×3 (05:34→17:49)
[2020-01-19 06:42] VITALS: BP 98/58
[2020-01-19] MEDS: INSULIN LISPRO 100 UNITS/ML, PEN SQ-INSULIN SCH ×3 (07:00→16:32)
[2020-01-19] MEDS: MIDODRINE 5 MG TABLET PO SCH ×2 (08:10→17:49)
[2020-01-19] MEDS: TAMSULOSIN 0.4 MG CAP.ER.24H PO SCH (08:10)
[2020-01-19] MEDS: AMIODARONE 200 MG TABLET PO SCH (08:11)
[2020-01-19] MEDS: CALCIUM ACETATE 667 MG CAPSULE PO SCH ×3 (08:11→17:49)
[2020-01-19] MEDS: DEXTROSE 5% 1,000 ML IV SCH (11:00)
[2020-01-19] MEDS ORDERED: MIDO5TAB9 PO (11:04)
[2020-01-19] MEDS ORDERED: CALC667C PO (11:04)
[2020-01-19] MEDS ORDERED: ERGO500017 PO (11:04)
[2020-01-19] MEDS ORDERED: AMIO200T42 PO (11:04)
[2020-01-19] MEDS ORDERED: INSU100I11 SQ-INSULIN (11:04)
[2020-01-19] MEDS ORDERED: LEVO150T PO (11:04)
[2020-01-19] MEDS ORDERED: INSU100I13 SQ-INSULIN ×3 (11:04→12:36)
[2020-01-19 12:48] VITALS: BP 98/60
[2020-01-19] MEDS: ERGOCALCIFEROL 50,000 UNIT CAPSULE PO SCH (12:57)
== END 2020-01-19 18:09 | disposition home or self-care (01) | DRG 673 ==
LOC: ED 21:44 → EDIP 21:59 → 5SO 23:00 → 3WST 01-04 03:57 → 4WST 01-05 16:57
PROVIDERS: ADMIT Internal Medicine; ATTEND Internal Medicine
PROC: 0JH63XZ Insertion of Tunneled Vascular Access Device into Chest Subcutaneous Tissue and Fascia, Percutaneous Approach (ICD-10-PCS; principal; 2020-01-03)
PROC: 02HV33Z Insertion of Infusion Device into Superior Vena Cava, Percutaneous Approach (ICD-10-PCS; 2020-01-03)
PROC: B5181ZA Fluoroscopy of Superior Vena Cava using Low Osmolar Contrast, Guidance (ICD-10-PCS; 2020-01-03)
PROC: B548ZZA Ultrasonography of Superior Vena Cava, Guidance (ICD-10-PCS; 2020-01-03)
PROC: 5A1D70Z Performance of Urinary Filtration, Intermittent, Less than 6 Hours Per Day (ICD-10-PCS; 2020-01-03)
PROC: 5A1D70Z Performance of Urinary Filtration, Intermittent, Less than 6 Hours Per Day (ICD-10-PCS; 2020-01-04)
PROC: 5A1D70Z Performance of Urinary Filtration, Intermittent, Less than 6 Hours Per Day (ICD-10-PCS; 2020-01-05)
PROC: 5A1D70Z Performance of Urinary Filtration, Intermittent, Less than 6 Hours Per Day (ICD-10-PCS; 2020-01-07)
PROC: 5A1D70Z Performance of Urinary Filtration, Intermittent, Less than 6 Hours Per Day (ICD-10-PCS; 2020-01-09)
PROC: 0W9G3ZZ Drainage of Peritoneal Cavity, Percutaneous Approach (ICD-10-PCS; 2020-01-10)
PROC: 5A1D70Z Performance of Urinary Filtration, Intermittent, Less than 6 Hours Per Day (ICD-10-PCS; 2020-01-11)
PROC: 5A1D70Z Performance of Urinary Filtration, Intermittent, Less than 6 Hours Per Day (ICD-10-PCS; 2020-01-14)
PROC: 5A1D70Z Performance of Urinary Filtration, Intermittent, Less than 6 Hours Per Day (ICD-10-PCS; 2020-01-16)
PROC: 0W9G3ZZ Drainage of Peritoneal Cavity, Percutaneous Approach (ICD-10-PCS; 2020-01-18)
DX: N17.9 Acute kidney failure, unspecified (principal); J15.6 Pneumonia due to other Gram-negative bacteria; J96.21 Acute and chronic respiratory failure with hypoxia; D68.59 Other primary thrombophilia; E87.1 Hypo-osmolality and hyponatremia; I13.2 Hypertensive heart and chronic kidney disease with heart failure and with stage 5 chronic kidney disease, or end stage renal disease; I47.2 Ventricular tachycardia; I50.22 Chronic systolic (congestive) heart failure; J44.0 Chronic obstructive pulmonary disease with (acute) lower respiratory infection; J93.9 Pneumothorax, unspecified; K76.6 Portal hypertension; R18.8 Other ascites; N18.6 End stage renal disease; D63.1 Anemia in chronic kidney disease; E03.9 Hypothyroidism, unspecified; E11.22 Type 2 diabetes mellitus with diabetic chronic kidney disease; E86.0 Dehydration; E87.5 Hyperkalemia; I07.1 Rheumatic tricuspid insufficiency; I25.10 Atherosclerotic heart disease of native coronary artery without angina pectoris; I25.2 Old myocardial infarction; I25.5 Ischemic cardiomyopathy; I35.8 Other nonrheumatic aortic valve disorders; I48.0 Paroxysmal atrial fibrillation; K70.9 Alcoholic liver disease, unspecified; K74.60 Unspecified cirrhosis of liver; N25.0 Renal osteodystrophy; N62 Hypertrophy of breast; Z78.9 Other specified health status; Z79.4 Long term (current) use of insulin; Z79.82 Long term (current) use of aspirin; Z79.899 Other long term (current) drug therapy; Z83.3 Family history of diabetes mellitus; Z87.891 Personal history of nicotine dependence; Z95.810 Presence of automatic (implantable) cardiac defibrillator; Z99.2 Dependence on renal dialysis; Z99.81 Dependence on supplemental oxygen; Z20.828 Contact with and (suspected) exposure to other viral communicable diseases
CPT/HCPCS: 36415; 36565; 36600; 49083; 71045; 71250; 74176; 77001; 78452; 80048; 80053; 80061; 80069; 80074; 81001; 82140; 82272; 82306; 82310; 82728; 82803; 82945; 82962; 83540; 83550; 83605; 83615; 83735; 83880; 83970; 83986; 84100; 84145; 84157; 84439; 84443; 84484; 85025; 85379; 85610; 85651; 85730; 86140; 86480; 86706; 87040; 87070; 87075; 87081; 87086; 87102; 87205; 89051; 90935; 93005; 93017; 93306; G0378; J0295; J0456; J0696; J1644; J2250; J2543; J2785; J3010; J7070; P9047; A9502; C1750; J1642; J1815; J2310; J7030; J7040; J7050; U0001

== ENCOUNTER → 2020-02-01 | Outpatient (CLI) | payer MEDICARE, MEDICAID ==
[~2020-02-01] MED LIST changes: +ALBUMIN HUMAN 25%, 25GM/100ML ONE; +INSU100I11 SQ-INSULIN; +INSU100I13 SQ-INSULIN; +LEVO150T PO; +LIDOCAINE 1%, 10ML ONE; +MIDO5TAB9 PO
== END | disposition home or self-care (01) ==
LOC: RAD 10:00
PROVIDERS: ATTEND Genetic Counselor, MS
DX: R18.8 Other ascites (principal); K72.90 Hepatic failure, unspecified without coma
CPT/HCPCS: 49083; P9047

== ENCOUNTER → 2020-02-08 | Outpatient (CLI) | payer MEDICARE, MEDICAID | END | disposition home or self-care (01) | LOC: RAD 09:44 | PROVIDERS: ATTEND Genetic Counselor, MS | DX: R18.8 Other ascites (principal) | CPT/HCPCS: 49083; P9047 ==

== ENCOUNTER 2020-02-10 08:38 | Inpatient (IN) | payer MEDICARE, MEDICAID ==
[~2020-02-10] VITALS: Ht 172.7 cm; Wt 80.6 kg
[~2020-02-10 08:38] MED LIST changes: -ALBUMIN HUMAN 25%, 25GM/100ML ONE; -LIDOCAINE 1%, 10ML ONE
[2020-02-10] MEDS ORDERED: SODIUM CHLORIDE 0.9% 1,000ML IVBOLUS ONE (09:30)
[2020-02-10] MEDS ORDERED: ONDANSETRON 2MG/ML, 2ML IVPush ONE (09:30)
[2020-02-10] MEDS ORDERED: MORPHINE SULFATE 4 MG/ML, 1ML IVPush PRN (09:30)
--- NOTE | 2020-02-10 09:31 | NUR ---
PT BIB [facility] FOR GLF TO LEFT HIP W NOTICEABLE DEFORMITY. PT DENIES LOC. SKIN TEAR TO RIGHT RIST. PAIN /. GIVEN 100 FENT. BP 80/40 IN ROUTE, 250 ML BOLUS BY EMS. BP REMAINED THE SAME AND CONTINUE TO BE LOW HERE IN ED. PT CO COUGH, NO FEVER OR SOB. HX OF DIALSYS, LAST DIALYSIS ON TUESDAY. REMOVED 6.5L., HX COPD, DM2.
[2020-02-10 09:35] LABS: BASOPHILS # (AUTO) 0.01 x10^3/uL (0-0.1); BASOPHILS % (AUTO) 0 % (0-1); EOSINOPHILS # (AUTO) 0.04 x10^3/uL (0-0.4); EOSINOPHILS % (AUTO) 0 % (1-7); LYMPHOCYTES # (AUTO) 0.77 x10^3/uL (1-3.4); LYMPHOCYTES % (AUTO) 7 % (22-44); MD NO; MEAN CORPUSCULAR HEMOGLOBIN 30.8 pg (27.5-34.5); MEAN CORPUSCULAR HGB CONC 32.6 g/dL (33.2-36.2); MEAN CORPUSCULAR VOLUME 94.3 fL (81-97); MEAN PLATELET VOLUME 7.7 fL (7.4-10.4); MONOCYTES # (AUTO) 0.87 x10^3/uL (0.2-0.8); MONOCYTES % (AUTO) 8 % (2-9); NEUTROPHILS # (AUTO) 8.94 x10^3/uL (1.8-6.8); NEUTROPHILS % (AUTO) 84 % (42-75); PLATELET COUNT 191 x10^3/uL (130-400); RED BLOOD COUNT 3.44 x10^6/uL (4.38-5.82)
--- NOTE | 2020-02-10 09:38 | NUR ---
AT BEDSIDE. COVID SWAB. 250 BOLUS. PT LAST ORAL INTAKE 6 AM. BP85/51, EKG IN PROCESS.
[2020-02-10 09:42] LABS: INTERNATIONAL NORMALIZED RATIO 1.12 (0.93-1.1); PROTHROMBIN TIME 11.9 Seconds (9.6-11.5)
[2020-02-10 09:45] LABS: ALBUMIN 2.5 g/dL (3.4-5.0); ANION GAP 8 mmol/L (5-15); CALCIUM 7.9 mg/dL (8.5-10.1); CHLORIDE 94 mmol/L (98-107)
--- NOTE | 2020-02-10 10:17 | NUR ---
PT RESTING. DENIES PAIN AT THIS TIME.
[2020-02-10] MEDS ORDERED: MIDODRINE 5 MG TABLET PO ONE (10:30)
[2020-02-10] MEDS ORDERED: SODIUM CHLORIDE 0.9% 1,000 ML IV SCH (11:26)
[2020-02-10] MEDS ORDERED: ONDANSETRON 2MG/ML, 2ML IVPush PRN (11:30)
[2020-02-10] MEDS ORDERED: ONDANSETRON ODT 4 MG PO PRN (11:30)
[2020-02-10] MEDS ORDERED: ACETAMINOPHEN 325 MG TABLET PO PRN (11:30)
[2020-02-10] MEDS ORDERED: ERGOCALCIFEROL 50,000 UNIT CAPSULE PO SCH (11:30)
--- NOTE | 2020-02-10 11:30 | NUR ---
IMAGING COMPLETED. MEDICATED PER ORDERS. VSS
--- NOTE | 2020-02-10 12:30 | NUR ---
WAITING FOR ADMIT BED. VSS. PT SLEEPING
[2020-02-10] MEDS ORDERED: HEPARIN 5,000 UNITS/ML, 1ML ONE (13:29)
[2020-02-10] MEDS ORDERED: OXYcodone IR 5MG TABLET ONE (13:33)
[2020-02-10] MEDS: HEPARIN 5,000 UNITS/ML, 1ML SQ SCH ×2 (13:36→22:10)
[2020-02-10] MEDS: OXYcodone IR 5MG TABLET PO PRN ×2 (13:36→22:59)
[2020-02-10] MEDS: CALCIUM ACETATE 667 MG CAPSULE PO SCH ×2 (13:38→16:38)
--- NOTE | 2020-02-10 13:45 | NUR ---
MEDICATED FOR PAIN. IVF INFUSING. PT RESTING. VSS. MEAL TRAY ORDERED
--- NOTE | 2020-02-10 14:33 | NUR ---
MEAL TRAY PROVIDED FOR PT. PT MORE COMFORTABLE AFTER PAIN MED.
--- NOTE | 2020-02-10 15:30 | NUR ---
PT TRANSFERRED TO HOSPITAL BED FOR COMFORT. PT PAIN LEVEL TOLERABLE. VSS. NO OTHER NEEDS AT THIS TIME. CALL LIGHT IN REACH, SIDE RAILS UP.
[2020-02-10] MEDS: INSULIN LISPRO 100 UNITS/ML, PEN SQ-INSULIN SCH ×2 (16:00→21:00)
[2020-02-10] MEDS: MIDODRINE 5 MG TABLET PO SCH ×2 (16:38→22:10)
--- NOTE | 2020-02-10 16:42 | NUR ---
MEDICATED PER ORDERS. BLOOD SUGAR 96
--- NOTE | 2020-02-10 18:02 | NUR ---
ASSISTED W URINAL. REPOSITIONED IN BED.
--- NOTE | 2020-02-10 18:37 | NUR ---
DINNER TRAY PROVIDED. VSS. PT UPRIGHT TO EAT
--- NOTE | 2020-02-10 18:48 | NUR ---
REPORT TO AISHA
--- NOTE | 2020-02-10 18:58 | NUR ---
Report received from HALEY Atkinson. This RN to assume care. Patient to be transferred to floor; awaiting NOC RN.
--- NOTE | 2020-02-10 19:55 | NUR ---
Report given to HALEY Dumas. Patient to be transferred to room 443.
[2020-02-10 20:16] VITALS: BP 99/58
[2020-02-10] MEDS: AMIODARONE 200 MG TABLET PO SCH (22:09)
[2020-02-10] MEDS: INSULIN GLARGINE 100 UNITS/ML, PEN SQ-INSULIN SCH (22:11)
[2020-02-10 22:56] VITALS: BP 106/51
[2020-02-11] MEDS: HEPARIN 5,000 UNITS/ML, 1ML SQ SCH ×3 (00:50→19:27)
[2020-02-11 03:50] VITALS: BP 95/58
[2020-02-11] MEDS: OXYcodone IR 5MG TABLET PO PRN ×2 (05:35→11:36)
[2020-02-11] MEDS: LEVOTHYROXINE 150 MCG TABLET PO SCH (05:35)
[2020-02-11 06:13] LABS: BASOPHILS # (AUTO) 0.04 x10^3/uL (0-0.1); BASOPHILS % (AUTO) 0 % (0-1); EOSINOPHILS # (AUTO) 0.04 x10^3/uL (0-0.4); EOSINOPHILS % (AUTO) 0 % (1-7); LYMPHOCYTES % (AUTO) 10 % (22-44); MD NO; MEAN CORPUSCULAR HEMOGLOBIN 30.6 pg (27.5-34.5); MEAN CORPUSCULAR HGB CONC 32.8 g/dL (33.2-36.2); MEAN CORPUSCULAR VOLUME 93.6 fL (81-97); MEAN PLATELET VOLUME 8.2 fL (7.4-10.4); MONOCYTES # (AUTO) 1.12 x10^3/uL (0.2-0.8); MONOCYTES % (AUTO) 10 % (2-9); NEUTROPHILS # (AUTO) 8.55 x10^3/uL (1.8-6.8); NEUTROPHILS % (AUTO) 79 % (42-75); PLATELET COUNT 202 x10^3/uL (130-400); RED CELL DISTRIBUTION WIDTH 17.3 % (9.4-14.8)
[2020-02-11 06:30] LABS: ALBUMIN 2.5 g/dL (3.4-5.0); ANION GAP 10 mmol/L (5-15); CALCIUM 8.2 mg/dL (8.5-10.1); CHLORIDE 93 mmol/L (98-107)
[2020-02-11 06:33] LABS: ALANINE AMINOTRANSFERASE 20 U/L (12-78); ALKALINE PHOSPHATASE 178 U/L (45-117); BILIRUBIN,TOTAL 0.9 mg/dL (0.2-1.0); CREATININE 4.39 mg/dL (0.7-1.3)
[2020-02-11 06:51] VITALS: BP 108/53
[2020-02-11] MEDS: CALCIUM ACETATE 667 MG CAPSULE PO SCH ×3 (08:00→16:07)
[2020-02-11] MEDS: SENNA/DOCUSATE TABLET PO SCH (08:01)
[2020-02-11] MEDS: CALCITONIN NASAL 200 UNITS/0.09ML, 3.7ML NAS SCH (08:08)
[2020-02-11] MEDS: AMIODARONE 200 MG TABLET PO SCH ×2 (08:09→22:48)
[2020-02-11] MEDS: MIDODRINE 5 MG TABLET PO SCH ×4 (08:09→22:48)
[2020-02-11] MEDS: INSULIN LISPRO 100 UNITS/ML, PEN SQ-INSULIN SCH ×4 (08:09→21:00)
[2020-02-11 12:31] VITALS: BP 86/46
[2020-02-11] MEDS ORDERED: SODIUM CHLORIDE 0.9%, 500ML IVBOLUS ONE (13:00)
[2020-02-11 13:31] VITALS: BP 107/58
[2020-02-11 13:35] LABS: FREE T4 (FREE THYROXINE) 1.1 ng/dL (0.76-1.46)
[2020-02-11] MEDS ORDERED: FENTANYL PF 100 MCG/2ML ONE ×2 (18:55→19:27)
[2020-02-11] MEDS ORDERED: ONDANSETRON 2MG/ML, 2ML ONE ×2 (19:26→19:55)
[2020-02-11] MEDS ORDERED: HYDROmorphone 1 MG/ML, 1ML INJ ONE (19:27)
[2020-02-11] MEDS ORDERED: OXYcodone 5 MG/5 ML ORAL.SOL UDC ONE (19:27)
[2020-02-11] MEDS ORDERED: MEPERIDINE/PF 25MG/ML,1ML ONE (19:27)
[2020-02-11] MEDS ORDERED: MEPERIDINE/PF 25MG/0.5ML IVPush PRN (19:30)
[2020-02-11] MEDS ORDERED: ACETAMINOPHEN 325 MG TABLET PO PRN (19:30)
[2020-02-11] MEDS ORDERED: ALBUTEROL SULFATE 2.5 MG/3 ML NPPB PRN (19:30)
[2020-02-11] MEDS ORDERED: FENTANYL PF 100 MCG/2ML IV PRN (19:30)
[2020-02-11] MEDS ORDERED: HYDROmorphone 1 MG/ML, 1ML INJ IVPush PRN (19:30)
[2020-02-11] MEDS ORDERED: PROMETHAZINE 25 MG/ML, 1ML IVPush PRN (19:30)
[2020-02-11] MEDS ORDERED: DEXAMETHASONE 4 MG/ML, 1ML ONE (19:55)
[2020-02-11] MEDS ORDERED: SUCCINYLCHOLINE 20 MG/ML, 10ML ONE (19:55)
[2020-02-11] MEDS ORDERED: PROPOFOL 10 MG/ML, 20ML ONE (19:55)
[2020-02-11] MEDS ORDERED: CEFAZOLIN 1,000 MG ONE (19:55)
[2020-02-11] MEDS: OXYcodone 5 MG/5 ML ORAL.SOL UDC PO PRN ×2 (20:01→20:10)
[2020-02-11 21:00] VITALS: BP 107/61
[2020-02-11] MEDS: INSULIN GLARGINE 100 UNITS/ML, PEN SQ-INSULIN SCH ×2 (21:00→22:48)
[2020-02-11] MEDS ORDERED: CEFAZOLIN 2,000 MG in SODIUM CHLORIDE 0.9% 50 ML IV SCH (22:00)
[2020-02-11] MEDS: CEFAZOLIN PMX 2GM/50ML 50 ML IVPB SCH (22:47)
[2020-02-12] VITALS (7 sets, daily range): BP systolic 84–106; BP diastolic 46–60
[2020-02-12] MEDS: HEPARIN 5,000 UNITS/ML, 1ML SQ SCH ×3 (01:54→21:28)
[2020-02-12] MEDS: OXYcodone IR 5MG TABLET PO PRN ×2 (05:54→21:27)
[2020-02-12] MEDS: MIDODRINE 5 MG TABLET PO SCH ×4 (05:55→21:27)
[2020-02-12] MEDS: LEVOTHYROXINE 150 MCG TABLET PO SCH (05:55)
[2020-02-12] MEDS: CEFAZOLIN PMX 2GM/50ML 50 ML IVPB SCH ×2 (06:01→13:50)
[2020-02-12 06:03] LABS: BASOPHILS # (AUTO) 0.01 x10^3/uL (0-0.1); BASOPHILS % (AUTO) 0 % (0-1); EOSINOPHILS % (AUTO) 0 % (1-7); LYMPHOCYTES # (AUTO) 0.61 x10^3/uL (1-3.4); LYMPHOCYTES % (AUTO) 6 % (22-44); MD NO; MEAN CORPUSCULAR HEMOGLOBIN 30.5 pg (27.5-34.5); MEAN CORPUSCULAR HGB CONC 32.1 g/dL (33.2-36.2); MEAN CORPUSCULAR VOLUME 95.1 fL (81-97); MEAN PLATELET VOLUME 8.2 fL (7.4-10.4); MONOCYTES % (AUTO) 4 % (2-9); NEUTROPHILS # (AUTO) 9.25 x10^3/uL (1.8-6.8); NEUTROPHILS % (AUTO) 90 % (42-75); PLATELET COUNT 217 x10^3/uL (130-400); RED BLOOD COUNT 3.64 x10^6/uL (4.38-5.82); RED CELL DISTRIBUTION WIDTH 18.4 % (9.4-14.8)
[2020-02-12 06:22] LABS: ALBUMIN 2.7 g/dL (3.4-5.0); ANION GAP 14 mmol/L (5-15); CALCIUM 8.6 mg/dL (8.5-10.1); CHLORIDE 93 mmol/L (98-107)
[2020-02-12 06:25] LABS: ALANINE AMINOTRANSFERASE 22 U/L (12-78); ALKALINE PHOSPHATASE 170 U/L (45-117); BILIRUBIN,TOTAL 1.3 mg/dL (0.2-1.0); CREATININE 4.36 mg/dL (0.7-1.3); TOTAL PROTEIN 6.6 g/dL (6.4-8.2)
[2020-02-12] MEDS ORDERED: AMIODARONE 200 MG TABLET PO SCH (09:00)
[2020-02-12] MEDS: INSULIN LISPRO 100 UNITS/ML, PEN SQ-INSULIN SCH ×4 (09:17→21:35)
[2020-02-12] MEDS: CALCIUM ACETATE 667 MG CAPSULE PO SCH ×3 (09:17→16:26)
[2020-02-12] MEDS: SENNA/DOCUSATE TABLET PO SCH (09:18)
[2020-02-12] MEDS: AMIODARONE 200 MG TABLET PO SCH ×2 (09:18→21:27)
[2020-02-12] MEDS: CALCITONIN NASAL 200 UNITS/0.09ML, 3.7ML NAS SCH (09:18)
[2020-02-12] MEDS ORDERED: ALBUMIN HUMAN 25% 100 ML IV ONE ×2 (17:30)
[2020-02-12] MEDS: INSULIN GLARGINE 100 UNITS/ML, PEN SQ-INSULIN SCH (21:34)
[2020-02-13] MEDS: morphine SULFATE 10 MG/ML, 1ML IVPush PRN (01:32)
[2020-02-13 03:56] VITALS: BP 94/52
[2020-02-13] MEDS: HEPARIN 5,000 UNITS/ML, 1ML SQ SCH ×3 (05:36→20:58)
[2020-02-13] MEDS: LEVOTHYROXINE 150 MCG TABLET PO SCH (05:37)
[2020-02-13] MEDS: MIDODRINE 5 MG TABLET PO SCH ×4 (05:37→20:56)
[2020-02-13 05:45] LABS: CHLORIDE 93 mmol/L (98-107)
[2020-02-13 06:01] LABS: ANION GAP 10 mmol/L (5-15); CALCIUM 8.8 mg/dL (8.5-10.1); CREATININE 3.96 mg/dL (0.7-1.3)
[2020-02-13] MEDS: INSULIN LISPRO 100 UNITS/ML, PEN SQ-INSULIN SCH ×4 (07:00→20:58)
[2020-02-13 07:13] VITALS: BP 98/61
[2020-02-13] MEDS: CALCITONIN NASAL 200 UNITS/0.09ML, 3.7ML NAS SCH (07:21)
[2020-02-13 07:32] LABS: MEAN CORPUSCULAR HEMOGLOBIN 30.6 pg (27.5-34.5); MEAN CORPUSCULAR VOLUME 95.9 fL (81-97); MEAN PLATELET VOLUME 8.3 fL (7.4-10.4); PLATELET COUNT 240 x10^3/uL (130-400); RED BLOOD COUNT 3.62 x10^6/uL (4.38-5.82); RED CELL DISTRIBUTION WIDTH 18.4 % (9.4-14.8)
[2020-02-13 07:56] LABS: BASOPHILS # (AUTO) 0.05 x10^3/uL (0-0.1); BASOPHILS % (AUTO) 0 % (0-1); EOSINOPHILS % (AUTO) 0 % (1-7); LYMPHOCYTES # (AUTO) 1.01 x10^3/uL (1-3.4); LYMPHOCYTES % (AUTO) 7 % (22-44); MD SCAN; MONOCYTES # (AUTO) 1.18 x10^3/uL (0.2-0.8); MONOCYTES % (AUTO) 8 % (2-9); NEUTROPHILS # (AUTO) 13.12 x10^3/uL (1.8-6.8); NEUTROPHILS % (AUTO) 85 % (42-75)
[2020-02-13] MEDS ORDERED: CEFTRIAXONE PMX 1GM/50ML 50 ML IV SCH (08:30)
[2020-02-13] MEDS: CALCIUM ACETATE 667 MG CAPSULE PO SCH ×3 (09:34→16:21)
[2020-02-13] MEDS: SENNA/DOCUSATE TABLET PO SCH (09:35)
[2020-02-13] MEDS: AMIODARONE 200 MG TABLET PO SCH ×2 (09:35→20:56)
[2020-02-13 11:09] VITALS: BP 95/59
[2020-02-13 16:22] VITALS: BP 97/59
[2020-02-13 19:09] VITALS: BP 101/67
[2020-02-13] MEDS: INSULIN GLARGINE 100 UNITS/ML, PEN SQ-INSULIN SCH (20:56)
[2020-02-13 22:55] VITALS: BP 90/59
[2020-02-14] MEDS: MIDODRINE 5 MG TABLET PO SCH ×5 (05:27→21:05)
[2020-02-14] MEDS: HEPARIN 5,000 UNITS/ML, 1ML SQ SCH ×3 (05:27→21:05)
[2020-02-14] MEDS: LEVOTHYROXINE 150 MCG TABLET PO SCH (05:27)
[2020-02-14] MEDS: INSULIN LISPRO 100 UNITS/ML, PEN SQ-INSULIN SCH ×4 (07:00→21:05)
[2020-02-14] MEDS: CALCITONIN NASAL 200 UNITS/0.09ML, 3.7ML NAS SCH (07:48)
[2020-02-14 11:51] LABS: ANION GAP 9 mmol/L (5-15); CALCIUM 7.8 mg/dL (8.5-10.1); CHLORIDE 97 mmol/L (98-107); CREATININE 2.65 mg/dL (0.7-1.3)
[2020-02-14] MEDS: CALCIUM ACETATE 667 MG CAPSULE PO SCH ×4 (12:00→18:33)
[2020-02-14] MEDS: CEFTRIAXONE PMX 1GM/50ML 50 ML IV SCH (12:05)
[2020-02-14 12:10] VITALS: BP 94/59
[2020-02-14] MEDS: SENNA/DOCUSATE TABLET PO SCH (12:12)
[2020-02-14] MEDS: AMIODARONE 200 MG TABLET PO SCH ×2 (12:13→21:05)
[2020-02-14] MEDS: DOXYCYCLINE 100MG TABLET PO SCH ×2 (12:13→21:05)
[2020-02-14 12:31] LABS: MEAN CORPUSCULAR HEMOGLOBIN 30.6 pg (27.5-34.5); MEAN CORPUSCULAR HGB CONC 32.5 g/dL (33.2-36.2); MEAN CORPUSCULAR VOLUME 94.1 fL (81-97); MEAN PLATELET VOLUME 7.4 fL (7.4-10.4); RED BLOOD COUNT 3.32 x10^6/uL (4.38-5.82); RED CELL DISTRIBUTION WIDTH 17.8 % (9.4-14.8)
[2020-02-14 12:32] LABS: BASOPHILS # (AUTO) 0.01 x10^3/uL (0-0.1); BASOPHILS % (AUTO) 0 % (0-1); EOSINOPHILS # (AUTO) 0.01 x10^3/uL (0-0.4); EOSINOPHILS % (AUTO) 0 % (1-7); LYMPHOCYTES % (AUTO) 5 % (22-44); MD SCAN; MONOCYTES # (AUTO) 0.99 x10^3/uL (0.2-0.8); MONOCYTES % (AUTO) 8 % (2-9); NEUTROPHILS # (AUTO) 10.85 x10^3/uL (1.8-6.8); NEUTROPHILS % (AUTO) 87 % (42-75)
[2020-02-14 12:36] LABS: PLATELET COUNT 185 x10^3/uL (130-400)
[2020-02-14 12:52] VITALS: BP 85/47
[2020-02-14 13:35] LABS: MICROSCOPIC INDICATED
[2020-02-14 19:28] VITALS: BP 107/69
[2020-02-14] MEDS: INSULIN GLARGINE 100 UNITS/ML, PEN SQ-INSULIN SCH (21:06)
[2020-02-14] MEDS: OXYcodone IR 5MG TABLET PO PRN (22:58)
[2020-02-15 00:23] VITALS: BP 100/59
[2020-02-15] MEDS: LEVOTHYROXINE 150 MCG TABLET PO SCH (05:52)
[2020-02-15] MEDS: HEPARIN 5,000 UNITS/ML, 1ML SQ SCH ×3 (05:52→21:09)
[2020-02-15] MEDS: MIDODRINE 5 MG TABLET PO SCH ×4 (05:52→21:08)
[2020-02-15] MEDS: INSULIN LISPRO 100 UNITS/ML, PEN SQ-INSULIN SCH ×4 (07:00→20:24)
[2020-02-15 07:16] VITALS: BP 100/63
[2020-02-15] MEDS: SENNA/DOCUSATE TABLET PO SCH (08:55)
[2020-02-15] MEDS: CALCIUM ACETATE 667 MG CAPSULE PO SCH ×3 (08:55→16:35)
[2020-02-15] MEDS: AMIODARONE 200 MG TABLET PO SCH ×2 (08:55→21:07)
[2020-02-15] MEDS: DOXYCYCLINE 100MG TABLET PO SCH ×2 (08:55→21:08)
[2020-02-15] MEDS ORDERED: LIDOCAINE 1%, 10ML ONE (09:27)
[2020-02-15 10:42] VITALS: BP 96/51
[2020-02-15] MEDS: CEFTRIAXONE PMX 1GM/50ML 50 ML IV SCH (11:25)
[2020-02-15] MEDS: CALCITONIN NASAL 200 UNITS/0.09ML, 3.7ML NAS SCH ×2 (11:25→11:30)
[2020-02-15] MEDS ORDERED: BISACODYL 10 MG SUPP PR PRN (13:00)
[2020-02-15 13:21] VITALS: BP 97/56
[2020-02-15] MEDS: POLYETHYLENE GLYCOL 17 GM PACKET PO SCH (13:30)
[2020-02-15] MEDS ORDERED: SENN-193 PO (14:42)
[2020-02-15] MEDS ORDERED: CALC3.7S5 NAS (14:42)
[2020-02-15] MEDS ORDERED: OXYC5TAB3 PO (14:42)
[2020-02-15] MEDS ORDERED: CEFD300C37 PO (14:42)
[2020-02-15] MEDS ORDERED: DOXY100T PO (14:42)
[2020-02-15 20:05] VITALS: BP_SYST 93; BP_SYST 95; BP_DIAS 57; BP_DIAS 59
[2020-02-15] MEDS: OXYcodone IR 5MG TABLET PO PRN (20:20)
[2020-02-15] MEDS: INSULIN GLARGINE 100 UNITS/ML, PEN SQ-INSULIN SCH (21:09)
[2020-02-15] MEDS: morphine SULFATE 10 MG/ML, 1ML IVPush PRN (22:20)
[2020-02-16 01:46] VITALS: BP 101/52
[2020-02-16] MEDS: morphine SULFATE 10 MG/ML, 1ML IVPush PRN (01:50)
[2020-02-16] MEDS: OXYcodone IR 5MG TABLET PO PRN ×2 (03:23→12:55)
[2020-02-16 05:54] VITALS: BP 98/60
[2020-02-16] MEDS: MIDODRINE 5 MG TABLET PO SCH ×2 (05:56→12:55)
[2020-02-16] MEDS: HEPARIN 5,000 UNITS/ML, 1ML SQ SCH ×2 (05:56→12:56)
[2020-02-16] MEDS: LEVOTHYROXINE 150 MCG TABLET PO SCH (05:57)
[2020-02-16] MEDS: INSULIN LISPRO 100 UNITS/ML, PEN SQ-INSULIN SCH ×2 (07:00→11:00)
[2020-02-16 07:01] VITALS: BP 101/66
[2020-02-16] MEDS: POLYETHYLENE GLYCOL 17 GM PACKET PO SCH (07:20)
[2020-02-16] MEDS: DOXYCYCLINE 100MG TABLET PO SCH (07:40)
[2020-02-16] MEDS: CALCITONIN NASAL 200 UNITS/0.09ML, 3.7ML NAS SCH (07:40)
[2020-02-16] MEDS: SENNA/DOCUSATE TABLET PO SCH (07:40)
[2020-02-16] MEDS: CALCIUM ACETATE 667 MG CAPSULE PO SCH ×2 (07:40→12:55)
[2020-02-16] MEDS: AMIODARONE 200 MG TABLET PO SCH (07:41)
[2020-02-16] MEDS: CEFTRIAXONE PMX 1GM/50ML 50 ML IV SCH (12:56)
[2020-02-16 13:52] VITALS: BP 100/61
== END 2020-02-16 15:07 | DRG 480 ==
LOC: ED 09:07 → EDIP 14:57 → 4NW 20:00 → 3N 02-12 16:02
PROVIDERS: ADMIT Internal Medicine; ATTEND Internal Medicine Infectious Disease
PROC: 0QS736Z Reposition Left Upper Femur with Intramedullary Internal Fixation Device, Percutaneous Approach (ICD-10-PCS; principal; 2020-02-13)
PROC: 0W9G3ZZ Drainage of Peritoneal Cavity, Percutaneous Approach (ICD-10-PCS; 2020-02-15)
PROC: 5A1D70Z Performance of Urinary Filtration, Intermittent, Less than 6 Hours Per Day (ICD-10-PCS; 2020-02-16)
DX: S72.142A Displaced intertrochanteric fracture of left femur, initial encounter for closed fracture (principal); N18.6 End stage renal disease; J18.9 Pneumonia, unspecified organism; J96.00 Acute respiratory failure, unspecified whether with hypoxia or hypercapnia; E87.1 Hypo-osmolality and hyponatremia; I13.2 Hypertensive heart and chronic kidney disease with heart failure and with stage 5 chronic kidney disease, or end stage renal disease; I47.2 Ventricular tachycardia; I48.20 Chronic atrial fibrillation, unspecified; I50.22 Chronic systolic (congestive) heart failure; J44.0 Chronic obstructive pulmonary disease with (acute) lower respiratory infection; D63.1 Anemia in chronic kidney disease; E03.9 Hypothyroidism, unspecified; E11.22 Type 2 diabetes mellitus with diabetic chronic kidney disease; E78.5 Hyperlipidemia, unspecified; I07.1 Rheumatic tricuspid insufficiency; I25.10 Atherosclerotic heart disease of native coronary artery without angina pectoris; I25.5 Ischemic cardiomyopathy; K70.31 Alcoholic cirrhosis of liver with ascites; K72.90 Hepatic failure, unspecified without coma; R53.81 Other malaise; R62.7 Adult failure to thrive; W07.XXXA Fall from chair, initial encounter; Z20.828 Contact with and (suspected) exposure to other viral communicable diseases; E87.70 Fluid overload, unspecified; Z79.01 Long term (current) use of anticoagulants; Z66 Do not resuscitate; Z79.4 Long term (current) use of insulin; Z82.49 Family history of ischemic heart disease and other diseases of the circulatory system; Z83.3 Family history of diabetes mellitus; Z87.891 Personal history of nicotine dependence; Z95.0 Presence of cardiac pacemaker; Z99.2 Dependence on renal dialysis; Z03.818 Encounter for observation for suspected exposure to other biological agents ruled out; Z79.899 Other long term (current) drug therapy
CPT/HCPCS: 36415; 49083; 71045; 80048; 80053; 80069; 81001; 82040; 82962; 83735; 84100; 84145; 84439; 84443; 85025; 85610; 86705; 86706; 86850; 86900; 87086; 87340; 90935; 93005; 93308; 93321; 93325; 96360; 96361; 99291; C1713; G0378; J0690; J0696; J1100; J1644; J2405; J2704; J3010; P9047; J0330; J1815; J2270; J7030; J7040; U0001-CS

== ENCOUNTER → 2020-02-22 | Outpatient (CLI) | payer MEDICARE, MEDICAID ==
[~2020-02-22] MED LIST changes: +CALC3.7S5 NAS; +DOXY100T PO; +LIDOCAINE 1%, 10ML ONE; +OXYC5TAB3 PO; +SENN-193 PO
== END | disposition home or self-care (01) ==
LOC: RAD 11:17
PROVIDERS: ATTEND Genetic Counselor, MS
DX: R18.8 Other ascites (principal)
CPT/HCPCS: 49083

== ENCOUNTER 2020-02-29 11:14 | Emergency (ER) | payer MEDICARE, MEDICAID ==
[~2020-02-29] VITALS: Ht 172.7 cm; Wt 86.0 kg
[~2020-02-29 11:14] MED LIST changes: -ALBUMIN HUMAN 25%, 25GM/100ML ONE; -INSU100I17 SQ; -INSU100I34 SQ; -LIDOCAINE 1%, 10ML ONE; -ONDA-89 PO
--- NOTE | 2020-02-29 11:36 | NUR ---
PT FROM IR AFTER PT DID NOT APPEAR TO STAFF LIKE HIS NORMAL SELF IN THE SENSE OF BEING WEAK, SOB. PT DENIES CP. PT WAS NOT ON OXYGEN ON ARRIVAL AND USUALLY IS ON 4 LITERS 11/04. PT DENIES BODY ACHES, CHILLS, FEVERS, SORE THROAT, OR NEW COUGH. PT WAS IN IR AND HAD PARACENTESIS DONE WHERE 2.5 LITERS WERE REMOVED AND PT WAS GIVEN 50 MG OF ALBUMIN.
--- NOTE | 2020-02-29 12:09 | NUR ---
PT IN RAD.
--- NOTE | 2020-02-29 12:37 | NUR ---
SPOKE TO DAUGHTER,TIFFANY, ON THE PHONE AND SHE STATES HIS NORMAL ACTIVITY SINCE HE BROKE HIS HIP IS STANDING WITH ASSISTANCE AND TRANSFERRING. PT DOES NOT WALK.
[2020-02-29 12:46] LABS: BASOPHILS # (AUTO) 0.03 x10^3/uL (0-0.1); BASOPHILS % (AUTO) 0 % (0-1); EOSINOPHILS # (AUTO) 0.02 x10^3/uL (0-0.4); EOSINOPHILS % (AUTO) 0 % (1-7); LYMPHOCYTES # (AUTO) 0.71 x10^3/uL (1-3.4); LYMPHOCYTES % (AUTO) 8 % (22-44); MD NO; MEAN CORPUSCULAR HEMOGLOBIN 30.2 pg (27.5-34.5); MEAN CORPUSCULAR HGB CONC 32.3 g/dL (33.2-36.2); MEAN CORPUSCULAR VOLUME 93.5 fL (81-97); MEAN PLATELET VOLUME 7.6 fL (7.4-10.4); MONOCYTES # (AUTO) 0.67 x10^3/uL (0.2-0.8); MONOCYTES % (AUTO) 8 % (2-9); NEUTROPHILS # (AUTO) 7.44 x10^3/uL (1.8-6.8); NEUTROPHILS % (AUTO) 84 % (42-75); PLATELET COUNT 213 x10^3/uL (130-400); RED BLOOD COUNT 3.39 x10^6/uL (4.38-5.82); RED CELL DISTRIBUTION WIDTH 16.6 % (9.4-14.8)
[2020-02-29 12:59] LABS: ALANINE AMINOTRANSFERASE 14 U/L (12-78); ALBUMIN 3.1 g/dL (3.4-5.0); ANION GAP 5 mmol/L (5-15); CALCIUM 8.4 mg/dL (8.5-10.1); CHLORIDE 90 mmol/L (98-107)
--- NOTE | 2020-02-29 13:00 | NUR ---
CHART UP FOR MD RECHECK. PT RESTING..
[2020-02-29 13:16] LABS: ALKALINE PHOSPHATASE 225 U/L (45-117); BILIRUBIN,TOTAL 1.4 mg/dL (0.2-1.0); TOTAL PROTEIN 6.4 g/dL (6.4-8.2)
--- NOTE | 2020-02-29 13:40 | NUR ---
STILL WAITING FOR MD RECHECK. PT COULD BE SENT HOME IF DISCHARGED VIA [facility].
[2020-02-29 15:19] VITALS: BP 100/55
== END 2020-02-29 15:29 | disposition home or self-care (01) ==
LOC: ED 11:49
DX: R55 Syncope and collapse (principal); R06.00 Dyspnea, unspecified; R53.1 Weakness; R94.31 Abnormal electrocardiogram [ECG] [EKG]; I10 Essential (primary) hypertension; E11.9 Type 2 diabetes mellitus without complications; J44.9 Chronic obstructive pulmonary disease, unspecified; I48.91 Unspecified atrial fibrillation; I25.2 Old myocardial infarction; Z95.0 Presence of cardiac pacemaker
CPT/HCPCS: 36415; 71046; 80053; 83880; 85025; 93005; 99285

== ENCOUNTER → 2020-02-29 | Outpatient (CLI) | payer MEDICARE, MEDICAID ==
[~2020-02-29] MED LIST changes: +ALBUMIN HUMAN 25%, 25GM/100ML ONE; +INSU100I17 SQ; +INSU100I34 SQ; +ONDA-89 PO
== END | disposition home or self-care (01) ==
LOC: RAD 10:01
PROVIDERS: ATTEND Genetic Counselor, MS
DX: R18.8 Other ascites (principal); I95.9 Hypotension, unspecified; R09.02 Hypoxemia
CPT/HCPCS: 49083; P9047

== ENCOUNTER 2020-03-20 08:27 | Outpatient (CLI) | payer MEDICARE, MEDICAID ==
[~2020-03-20 08:27] MED LIST changes: +INSU100I17 SQ; +INSU100I34 SQ; +ONDA-89 PO
[2020-03-20] MEDS ORDERED: LIDOCAINE 1%, 10ML ONE (08:29)
[2020-03-20] MEDS ORDERED: ALBUMIN HUMAN 25%, 25GM/100ML ONE (08:45)
== END 2020-03-20 23:59 | disposition home or self-care (01) ==
LOC: RAD 08:27
PROVIDERS: ATTEND Genetic Counselor, MS
DX: R18.8 Other ascites (principal)
CPT/HCPCS: 49083; P9047